=== PATIENT | female | born 1945 | race Caucasian/White ===

== ENCOUNTER 2016-09-16 09:31 | Outpatient (CLI) | payer MEDICARE ==
[2016-09-16 11:06] LABS: Hemoglobin A1c 5.8 % (4.0-6.0)
[2016-09-16 11:08] LABS: ALT (SGPT) 15 U/L (0-55); AST (SGOT) 18 U/L (5-34); Alkaline Phosphatase 99 U/L (40-150); Bilirubin, Direct 0.3 mg/dL (0.1-0.3); Bilirubin, Total 0.6 mg/dL (0.2-1.2); LDL Cholesterol, Calculated 65 mg/dL; Protein, Total 7.5 g/dL (5.8-8.1)
== END 2016-09-16 09:32 | disposition home or self-care (01) ==
LOC: BURLAB 09:31
PROVIDERS: ATTEND Family Medicine
DX: E78.5 Hyperlipidemia, unspecified (principal); R73.09 Other abnormal glucose
CPT/HCPCS: 36415; 80061; 80076; 83036

== ENCOUNTER 2016-11-07 14:19 | Outpatient (CLI) | payer MEDICARE ==
[2016-11-07 14:48] LABS: #Basophils 0.1 thou/uL (0.0-0.2); #Eosinphils 0.5 thou/uL (0.0-0.7); #Lymphocytes 2.7 thou/uL (1.20-3.40); #Monocytes 0.7 thou/uL (0.11-0.59); #Neutrophils 4.2 thou/uL (1.40-6.50); %Basophils 1.7 % (0.0-1.0); %Eosinophils 6.4 % (0.0-10.0); %Monocytes 8.3 % (0.0-10.0); Hematocrit 37.6 % (36.0-47.0); Mean Platelet Volume 5.8 fL (7.4-10.4); Red Blood Cell (RBC) Count 4.25 mill/uL (4.20-5.40); White Blood Cell (WBC) Count 8.2 thou/uL (4.8-10.8)
[2016-11-07 14:55] LABS: ALT (SGPT) 14 U/L (0-55); AST (SGOT) 18 U/L (5-34); Alkaline Phosphatase 100 U/L (40-150); Anion Gap 15 mmol/L (10-20); BUN (Urea Nitrogen) 15 mg/dL (9.8-20.1); Bilirubin, Total 0.5 mg/dL (0.2-1.2); Calc. Creatinine Clearance 0 mL/min (70-130); Calcium 9.3 mg/dL (7.8-10.44); Carbon Dioxide 28 mmol/L (23-31); Chloride 100 mmol/L (98-107); Estimated GFR-MDRD 50; Protein, Total 7.3 g/dL (5.8-8.1)
== END 2016-11-07 14:20 | disposition home or self-care (01) ==
LOC: BURLAB 14:19
PROVIDERS: ATTEND Family Medicine
DX: Z01.818 Encounter for other preprocedural examination (principal); M16.12 Unilateral primary osteoarthritis, left hip
CPT/HCPCS: 36415; 80053; 85025

== ENCOUNTER 2017-02-15 11:24 | Emergency (ER) | payer MEDICARE ==
[2017-02-15] MEDS ORDERED: Nitroglycerin 0.4 MG TAB (25 Tab Bottle) ONE (11:37)
[2017-02-15 11:44] LABS: #Basophils 0.1 thou/uL (0.0-0.2); #Eosinphils 0.6 thou/uL (0.0-0.7); #Lymphocytes 2.2 thou/uL (1.20-3.40); #Monocytes 0.6 thou/uL (0.11-0.59); #Neutrophils 4.7 thou/uL (1.40-6.50); %Basophils 1.1 % (0.0-1.0); %Eosinophils 7.8 % (0.0-10.0); %Lymphocytes 26.5 % (21.0-51.0); %Monocytes 7.2 % (0.0-10.0); %Neutrophils 57.4 % (42.0-75.0); Hemoglobin 13.5 g/dL (12.0-16.0); Mean Corpuscular HGB CONC 33.3 g/dL (32.0-36.0); Mean Corpuscular Volume 87.1 fl (81.0-99.0); Mean Platelet Volume 5.8 fL (7.4-10.4); Platelet Count 248 thou/uL (130-400); RBC Distribution Width 12.2 % (11.5-14.5); Red Blood Cell (RBC) Count 4.65 mill/uL (4.20-5.40); White Blood Cell (WBC) Count 8.2 thou/uL (4.8-10.8)
[2017-02-15 11:59] LABS: ALT (SGPT) 20 U/L (8-55); AST (SGOT) 22 U/L (5-34); Albumin 4.4 g/dL (3.4-4.8); Alkaline Phosphatase 115 U/L (40-150); Anion Gap 15 mmol/L (10-20); BUN (Urea Nitrogen) 10 mg/dL (9.8-20.1); Bilirubin, Total 0.5 mg/dL (0.2-1.2); Calc. Creatinine Clearance 0 mL/min (70-130); Calcium 9.1 mg/dL (7.8-10.44); Carbon Dioxide 29 mmol/L (23-31); Chloride 98 mmol/L (98-107); Estimated GFR-MDRD 70; Globulin 3.4 g/dL (2.4-3.5); Glucose 92 mg/dL (83-110); Potassium 3.3 mmol/L (3.5-5.1); Protein, Total 7.8 g/dL (6.0-8.3); Sodium 139 mmol/L (136-145)
[2017-02-15 12:00] LABS: CKMB 0.8 ng/mL (0-6.6); Troponin I Less than 0.010 ng/mL (< 0.028)
--- NOTE | 2017-02-15 12:11 | RAD ---
FRONTAL VIEW OF CHEST: Date: 02/15/17 COMPARISON: 05/10/15. INDICATION: Chest pain. FINDINGS: Mild patchy opacity of the left lung base is present. The cardiac silhouette is accentuated by techn ique. Lungs are mildly hyperinflated, stable appearing. No additional significant interval change. IMPRESSION: Mild patchy left basilar opacity may be on the basis of atelectasis. Correlate clinically to exclude evidence of developing pneumonia and, as necessary, dedicated imaging follow-up with 2 view chest m ay be performed to confirm resolution. POS: [facility]
== END 2017-02-15 12:38 | disposition short-term general hospital (02) ==
LOC: BURERS 11:24
DX: R07.2 Precordial pain (principal); J45.909 Unspecified asthma, uncomplicated; I10 Essential (primary) hypertension; F32.9 Major depressive disorder, single episode, unspecified; F41.9 Anxiety disorder, unspecified; Z79.899 Other long term (current) drug therapy
CPT/HCPCS: 71010; 80053; 82553; 83880; 84484; 85025; 93005

== ENCOUNTER 2017-03-14 12:16 | Outpatient (CLI) | payer MEDICARE ==
[2017-03-14 16:34] LABS: Bilirubin Negative (Negative); Blood, Urine Negative (Negative); Clarity Clear (Clear); Glucose, Urine (Dipstick) Negative (Negative); Leukocyte Negative (Negative); Nitrite Negative (Negative); Protein, Urine (Dipstick) Negative (Neg-Trace); Specific Gravity, Urine 1.015 (1.005-1.030); Urobilinogen 0.2 mg/dL (0.2-1.0)
[2017-03-14 17:11] LABS: Bacteria/HPF None Seen HPF (None Seen); RBC/HPF 0-3 HPF (0-3); Squamous Epithelial 0-3 HPF (0-3); WBC/HPF None Seen HPF (0-3)
== END 2017-03-14 12:17 | disposition home or self-care (01) ==
LOC: LABLEX 12:16
PROVIDERS: ATTEND Family Medicine
DX: N30.00 Acute cystitis without hematuria (principal)
CPT/HCPCS: 81001; 87086

== ENCOUNTER 2017-03-27 09:08 | Outpatient (CLI) | payer MEDICARE ==
--- NOTE | 2017-03-27 19:38 | RAD ---
RIGHT HIP TWO VIEWS 03/27/17 No fracture was demonstrated. Arthritic changes are seen in the hip joint consistent with osteophyte s and joint space narrowing. It is moderate in degree. The adjacent pubic ring appears intact. The t rochanters and femoral neck appear normal for age. IMPRESSION: Moderate degenerative changes but no acute findings. POS: HOME
== END 2017-03-27 09:09 | disposition home or self-care (01) ==
LOC: BURRAD 09:08
PROVIDERS: ATTEND Family Medicine
DX: M25.551 Pain in right hip (principal); M16.11 Unilateral primary osteoarthritis, right hip; W19.XXXA Unspecified fall, initial encounter

== ENCOUNTER 2017-05-12 22:05 | Emergency (ER) | payer MEDICARE ==
[2017-05-12 22:40] LABS: Bilirubin Negative (Negative); Blood, Urine Negative (Negative); Clarity Clear (Clear); Glucose, Urine (Dipstick) Negative (Negative); Leukocyte Negative (Negative); Nitrite Negative (Negative); Protein, Urine (Dipstick) Negative (Neg-Trace); Urobilinogen 0.2 mg/dL (0.2-1.0)
[2017-05-12] MEDS ORDERED: Azithromycin 250 MG TAB ONE (22:49)
[2017-05-12] MEDS ORDERED: traMADol HCl 50 MG TAB ONE (22:49)
[2017-05-12] MEDS ORDERED: Benzonatate 100 MG CAP ONE (22:50)
== END 2017-05-12 22:51 | disposition home or self-care (01) ==
LOC: BURERS 22:05
DX: J01.90 Acute sinusitis, unspecified (principal); F32.9 Major depressive disorder, single episode, unspecified; F41.9 Anxiety disorder, unspecified; J45.909 Unspecified asthma, uncomplicated; I10 Essential (primary) hypertension; G62.89 Other specified polyneuropathies; Z86.73 Personal history of transient ischemic attack (TIA), and cerebral infarction without residual deficits
CPT/HCPCS: 81003; 99283

== ENCOUNTER 2017-05-17 16:06 | Outpatient (CLI) | payer MEDICARE ==
--- NOTE | 2017-05-17 23:19 | RAD ---
CHEST TWO VIEWS 05/17/17 The heart is normal in size. The lungs are clear with no current signs of pneumonia. There are no ef fusions. The lungs are mildly hyperexpanded. The study seems no different than a 02/15/17 portable fi lm done previously. IMPRESSION: Mildly hyperexpanded lungs but no acute findings otherwise. POS: HOME
== END 2017-05-17 16:07 | disposition home or self-care (01) ==
LOC: BURRAD 16:06
PROVIDERS: ATTEND Nurse Practitioner
DX: J45.31 Mild persistent asthma with (acute) exacerbation (principal); J98.4 Other disorders of lung
CPT/HCPCS: 71020

== ENCOUNTER 2017-12-04 14:37 | Outpatient (CLI) | payer MEDICARE ==
--- NOTE | 2017-12-04 20:37 | RAD ---
CERVICAL SPINE: 12/04/17 AP, lateral and open mouth views are provided. Comparison is made with the prior study of 10/24/11. The patient has had a prior anterior cervical fusion at the C4-C7 levels. Synthetic discs are placed in the intervening disc spaces. No fracture or dislocation was seen. Vertebral alignment is as expected. There are no unusual postope rative changes. The C1 to disc distance is normal and the soft tissues are normal in thickness. IMPRESSION: No significant finding. POS: HOME
== END 2017-12-04 14:38 | disposition home or self-care (01) ==
LOC: BURRAD 14:37
PROVIDERS: ATTEND Family Medicine
DX: M54.2 Cervicalgia (principal)
CPT/HCPCS: 72040

== ENCOUNTER 2018-10-25 13:47 | Outpatient (CLI) | payer MEDICARE ==
--- NOTE | 2018-10-25 15:49 | RAD ---
CHEST 2 VIEWS: Date: 10/25/18 Comparison is made with the 08/16/18 study. FINDINGS: The heart is normal in size. There is no vascular congestion or edema. No pleural effusion is present . While there is no major lobar infiltrate, there is a little increased haziness in the right lower l obe. It seems enough different from the prior study that I cannot exclude a very early infiltrate her e as a possibility. The lungs are otherwise clear. The mediastinum is unremarkable. The trachea is mi dline. IMPRESSION: Minimal right basilar haziness. Correlate with clinical symptoms. CODE T. POS: HOME
== END 2018-10-25 13:48 | disposition home or self-care (01) ==
LOC: BURRAD 13:47
PROVIDERS: ATTEND Nurse Practitioner
DX: J44.1 Chronic obstructive pulmonary disease with (acute) exacerbation (principal); J98.4 Other disorders of lung
CPT/HCPCS: 71046

== ENCOUNTER 2018-11-21 12:44 | Emergency (ER) | payer MEDICARE ==
[2018-11-21 13:22] LABS: #Basophils 0.1 thou/uL (0.0-0.2); #Eosinphils 0.2 thou/uL (0.0-0.7); #Lymphocytes 0.6 thou/uL (1.20-3.40); #Monocytes 0.4 thou/uL (0.11-0.59); #Neutrophils 9.7 thou/uL (1.40-6.50); %Basophils 0.5 % (0.0-1.0); %Eosinophils 1.7 % (0.0-10.0); %Lymphocytes 5.6 % (21.0-51.0); %Monocytes 3.3 % (0.0-10.0); Hemoglobin 15.1 g/dL (12.0-16.0); Mean Corpuscular HGB CONC 31.8 g/dL (32.0-36.0); Mean Corpuscular Hemoglobin 28.1 pg (27.0-31.0); Mean Corpuscular Volume 88.5 fL (78.0-98.0); Mean Platelet Volume 6.5 fL (7.4-10.4); Platelet Count 197 thou/uL (130-400); RBC Distribution Width 13.4 % (11.5-14.5); Red Blood Cell (RBC) Count 5.38 mill/uL (4.20-5.40); White Blood Cell (WBC) Count 10.9 thou/uL (4.8-10.8)
[2018-11-21] MEDS ORDERED: Ondansetron PF 4 MG/2 ML Vial ONE (13:35)
[2018-11-21 13:37] LABS: ALT (SGPT) 10 U/L (8-55); AST (SGOT) 20 U/L (5-34); Albumin 4.7 g/dL (3.4-4.8); Alkaline Phosphatase 108 U/L (40-150); Anion Gap 15 mmol/L (10-20); BUN (Urea Nitrogen) 7 mg/dL (9.8-20.1); Bilirubin, Total 1.1 mg/dL (0.2-1.2); Calc. Creatinine Clearance 0 mL/min (70-130); Calcium 9.8 mg/dL (7.8-10.44); Carbon Dioxide 29 mmol/L (23-31); Chloride 98 mmol/L (98-107); Estimated GFR-MDRD 63; Glucose 127 mg/dL (83-110); Lipase 6 U/L (8-78); Potassium 3.7 mmol/L (3.5-5.1); Protein, Total 8.7 g/dL (6.0-8.3); Sodium 138 mmol/L (136-145)
--- NOTE | 2018-11-21 13:45 | CT ---
FCT brain noncontrast: 11/13/2018 1:29 PM HISTORY: 73-year-old female with altered mental status. Confusion. FINDINGS: Severe partial opacification of left maxillary sinus. Tzqs-bi-vdxffatw mucosal thickening throughout right maxillary sinus, bilateral ethmoid air cells, and frontal sinuses. Calvarium is grossly intact. No intracranial mass effect, midline shift, obstructive hydrocephalus, extra-axial fluid collection, or acute hemorrhage. Probable tiny old lacunar infarction at right globus pallidus with possible inv olvement of adjacent caudate nucleus. IMPRESSION: 1. No acute intracranial findings. 2. 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 3. Severe partial opacification of left maxillary sinus.
[2018-11-21 14:00] LABS: CKMB 0.7 ng/mL (0-6.6)
[2018-11-21 14:00] LABS: Bilirubin Negative (Negative); Blood, Urine Negative (Negative); Clarity Clear (Clear); Glucose, Urine (Dipstick) Negative (Negative); Leukocyte Negative (Negative); Nitrite Negative (Negative); Protein, Urine (Dipstick) Trace mg/dL (Neg-Trace); Specific Gravity, Urine 1.015 (1.005-1.030); Urobilinogen 0.2 mg/dL (0.2-1.0); pH, Urine 7.5 (5.0-9.0)
[2018-11-21] MEDS ORDERED: Piperacillin/Tazobactam 4.5 GM VIAL ONE (14:02)
[2018-11-21] MEDS ORDERED: Sodium Chloride 0.9% 100 ML ONE (14:02)
[2018-11-21] MEDS ORDERED: Acetaminophen 650 MG Suppository ONE (14:18)
[2018-11-21 16:04] LABS: Amphetamine Not Detected (NotDetected); Barbiturates Screen Not Detected (NotDetected); Benzodiazepine Screen Not Detected (NotDetected); Cocaine Metabolite Screen Not Detected (NotDetected); Medtox Control Line Valid? VALID (VALID); Methadone Not Detected (NotDetected); Methamphetamine Not Detected (NotDetected); Opiate Screen Not Detected (NotDetected); Oxycodone Screen Not Detected (NotDetected); Phencyclidine (PCP) Not Detected (NotDetected); THC/Cannabinoid Screen Not Detected (NotDetected); Tricyclic Screen Not Detected (NotDetected)
[2018-11-21 16:10] LABS: Acetaminophen Less than 6.0 mcg/mL (10.0-30.0); Alcohol Less than 10 mg/dL (Less than 10); Salicylate Less than 8.0 mg/dL (15.0-30.0)
--- NOTE | 2018-11-21 22:18 | RAD ---
PORTABLE CHEST 11/21/18 An AP portable film at 1323 is compared with a 10/30/18 study. The heart is normal in size. There is no congestion, edema or pleural effusion. There is no lobar pul monary consolidation. There is some haziness in the right base medially but looking back at some prio r films back to October 25, 2018, I am not sure this is really that much different than before. IMPRESSION: Slight right basilar haziness that is more likely chronic than acute. POS: HOME
== END 2018-11-21 16:12 | disposition short-term general hospital (02) ==
LOC: BURERS 12:44
DX: J18.1 Lobar pneumonia, unspecified organism (principal); R94.31 Abnormal electrocardiogram [ECG] [EKG]; J01.90 Acute sinusitis, unspecified; R79.89 Other specified abnormal findings of blood chemistry; I10 Essential (primary) hypertension; Z86.73 Personal history of transient ischemic attack (TIA), and cerebral infarction without residual deficits; K21.9 Gastro-esophageal reflux disease without esophagitis; F41.9 Anxiety disorder, unspecified; F32.9 Major depressive disorder, single episode, unspecified; Z79.899 Other long term (current) drug therapy; Z79.82 Long term (current) use of aspirin; Z79.51 Long term (current) use of inhaled steroids
CPT/HCPCS: 51701; 70450; 71045; 80053; 80306; 80307; 81003; 82271; 82553; 83605; 83690; 84484; 85025; 87040; 87804; 93005; 94760; 96365; 96367; 96375; A4353; J1956; J2405; J2543; J7050

== ENCOUNTER 2019-10-30 15:21 | Emergency (ER) | payer MEDICARE ==
--- NOTE | 2019-10-30 20:09 | CT ---
CT OF THE BRAIN WITHOUT CONTRAST: 10/30/19 Comparison is made with the prior exam dated 11/21/18. No acute intracranial findings were encountered. There is no sign of parenchymal hemorrhage or extra- axial hematoma. There was no evidence of acute stroke, mass, or edema. The crandall-white distinction is good. There is no ventricular shift. The calvarium appears intact with no sign of fracture. There is chronic mucosal thickening in the lef t maxillary sinus and some of the ethmoid sinuses bilaterally. This was present to some degree on the prior exam. The mastoid air cells are clear. IMPRESSION: 1. No acute intracranial findings. 2. Chronic sinusitis, particularly in the left maxillary sinus. Initial findings called to [facility] in ER at 1625 on 10/30/19. POS: HOME
== END 2019-10-30 16:45 | disposition home or self-care (01) ==
LOC: BURERS 15:21
DX: S00.03XA Contusion of scalp, initial encounter (principal); S29.012A Strain of muscle and tendon of back wall of thorax, initial encounter; S16.1XXA Strain of muscle, fascia and tendon at neck level, initial encounter; I10 Essential (primary) hypertension; E78.5 Hyperlipidemia, unspecified; G62.9 Polyneuropathy, unspecified; F41.9 Anxiety disorder, unspecified; F32.9 Major depressive disorder, single episode, unspecified; J42 Unspecified chronic bronchitis; Z87.891 Personal history of nicotine dependence; Z86.73 Personal history of transient ischemic attack (TIA), and cerebral infarction without residual deficits; Z79.82 Long term (current) use of aspirin; Z79.899 Other long term (current) drug therapy; W18.30XA Fall on same level, unspecified, initial encounter
CPT/HCPCS: 70450

== ENCOUNTER 2020-04-05 18:26 | Inpatient (IN) | payer MEDICARE, OTHER ==
[2020-04-05 19:05] LABS: #Basophils 0.1 thou/uL (0.0-0.2); #Eosinphils 0.2 thou/uL (0.0-0.7); #Lymphocytes 1.7 thou/uL (1.20-3.40); #Monocytes 0.9 thou/uL (0.11-0.59); #Neutrophils 7.6 thou/uL (1.40-6.50); %Basophils 0.7 % (0.0-1.0); %Eosinophils 2.3 % (0.0-10.0); %Lymphocytes 16.1 % (21.0-51.0); %Monocytes 8.4 % (0.0-10.0); %Neutrophils 72.5 % (42.0-75.0); Hemoglobin 11.3 g/dL (12.0-16.0); Mean Corpuscular HGB CONC 30.7 g/dL (32.0-36.0); Mean Corpuscular Hemoglobin 28.8 pg (27.0-31.0); Mean Corpuscular Volume 93.8 fL (78.0-98.0); Mean Platelet Volume 7.1 fL (7.4-10.4); Platelet Count 187 thou/uL (130-400); RBC Distribution Width 13.2 % (11.5-14.5); Red Blood Cell (RBC) Count 3.92 mill/uL (4.20-5.40); White Blood Cell (WBC) Count 10.5 thou/uL (4.8-10.8)
[2020-04-05 19:17] LABS: ALT (SGPT) 13 U/L (8-55); AST (SGOT) 17 U/L (5-34); Albumin 3.8 g/dL (3.4-4.8); Alkaline Phosphatase 88 U/L (40-110); Anion Gap 13 mmol/L (10-20); BUN (Urea Nitrogen) 9 mg/dL (9.8-20.1); Bilirubin, Total 1.1 mg/dL (0.2-1.2); Calc. Creatinine Clearance 0 mL/min (70-130); Calcium 8.2 mg/dL (7.8-10.44); Carbon Dioxide 24 mmol/L (23-31); Chloride 103 mmol/L (98-107); Estimated GFR-MDRD 68; Globulin 3.1 g/dL (2.4-3.5); Glucose 140 mg/dL (83-110); Potassium 3.5 mmol/L (3.5-5.1); Protein, Total 6.9 g/dL (6.0-8.3); Sodium 136 mmol/L (136-145)
[2020-04-05] MEDS ORDERED: Cefepime 1 GM VIAL ONE (19:25)
[2020-04-05] MEDS ORDERED: Adacel (T-DAP) 0.5 ML SYRINGE ONE (19:28)
[2020-04-05 19:29] LABS: D-Dimer Test 2.38 *mcg/mL (0.27-0.43); INR-International Normal Ratio 1.2; PTT 39.5 sec (22.9-36.1); Prothrombin Time 15.5 sec (12.0-14.7)
--- NOTE | 2020-04-05 21:00 | RAD ---
RIGHT FOOT THREE VIEWS: Date: 04-05-2020 FINDINGS: No fracture or opaque foreign body was seen. Swelling is seen in the forefoot, especially dorsally. T he bones themselves appear intact. No areas of bony destruction were detected. The joints were unrema rkable for age. A tiny calcaneal spur was noted. IMPRESSION: No acute bony finding. POS: HOME
[2020-04-05 21:02] VITALS: BMI 22.7
[2020-04-05] MEDS ORDERED: Acetaminophen 325 MG TAB PO PRN (21:28)
[2020-04-06] MEDS ORDERED: Ondansetron ODT 4 MG TAB PO PRN (07:55)
[2020-04-06] MEDS ORDERED: Vancomycin HCl 1 GM in Sodium Chloride 0.9% 250 ML 250 ML IVPB SCH (08:00)
[2020-04-06] MEDS: Cefepime 1 GM in Sodium Chloride 0.9% 100 ML IVPB SCH ×2 (09:13→20:49)
[2020-04-06] MEDS: Saccharomyces boulardii 250 MG CAP PO SCH (09:23)
[2020-04-06] MEDS: Gabapentin 300 MG CAP PO SCH ×2 (09:23→20:50)
[2020-04-06] MEDS: Aspirin 81 mg Enteric Coated Tablet PO SCH (09:24)
[2020-04-06] MEDS: DULoxetine 30 MG CAP PO SCH (09:24)
[2020-04-06] MEDS: Oxybutynin 5 MG TAB PO SCH ×3 (09:27→20:51)
[2020-04-06] MEDS: Amlodipine 5 MG TAB PO SCH (09:28)
[2020-04-06] MEDS: Enoxaparin Sodium 40 MG/0.4 ML SYRINGE SC SCH (09:32)
[2020-04-06] MEDS: Vancomycin HCl 1 GM in Sodium Chloride 0.9% 250 ML 250 ML IVPB SCH ×2 (10:35→23:09)
--- NOTE | 2020-04-06 11:32 | HP ---
CHIEF COMPLAINT: Cellulitis of right lower extremity. HISTORY OF PRESENT ILLNESS: A 74-year-old female presented to the [facility] Emergency Department yesterday evening with complaints of swelling, erythema and localized discomfort to the dorsum of her right foot which has worsened over a two day time period. She reported to have an accompanying low-grade fever as well. The patient states that she was outdoors feeding her cats and felt a sting to the dorsum of her right foot and upon going back indoors noticed two pinpoint areas of bleeding to the dorsum of the right foot. She is unsure of the cause of this localized injury. As stated, the appearance of her foot gradually worsened since that time. She has had no treatment since her evaluation in the [facility] Emergency Department. Workup in the emergency department was stable overall as far as her lab work and imaging. However, it was noted that the erythema to the dorsum of the foot had spread to the area superior to the ankle joint. Blood cultures were obtained and then she was started on vancomycin and cefepime empirically. She was provided Tdap immunization as well. The patient is subsequently being admitted to the floor for further IV antibiotic therapy to treat her right lower extremity cellulitis. In discussion with the ED physician, Dr. Mcnally, does not feel that this is from a snake bite as the two puncture markings are approximately 5 to 6 cm from each other and do not line up appropriately. As of this morning, upon seeing the patient, she reports to be doing well overall. She has had some decrease in level of erythema, which is now more focal to the dorsum of the right foot. She reports her pain to be stable and intake and output to be at baseline. She has good insight into her reason for admission. PAST MEDICAL HISTORY: Includes hypertension, anxiety with depression, dyslipidemia, peripheral polyneuropathy, mild memory impairment, chronic cervicalgia and polyarthralgia, bilateral hearing loss, gastroesophageal reflux disease, and COPD. SURGICAL HISTORY: Uterus suspension, appendectomy, conization of cervix, D and C, tonsillectomy and adenoidectomy, partial hysterectomy followed by a complete hysterectomy, bladder suspensions, knee surgery, breast biopsy, heart catheterization, varicose vein removed from the right leg, hernia repair to the abdomen, cervical spinal surgery, ankle surgery, cataract repair. SOCIAL HISTORY: She is a former smoker and denies illicit drug use or regular alcohol use. FAMILY HISTORY: Noncontributory. ALLERGIES: CHLORPROMAZINE, CODEINE, IODINE, AND OXYCODONE. CURRENT MEDICATIONS: 1. Trazodone 75 mg at bedtime. 2. . 3. Duragesic patch 25 mcg q.3 days. 4. Pantoprazole 40 mg b.i.d. 5. Oxybutynin 5 mg b.i.d. 6. Isosorbide mononitrate extended release 30 mg daily. 7. Gabapentin 600 mg b.i.d. 8. Advair 250/50 Diskus 1 puff inhaled b.i.d. 9. Duloxetine 30 mg daily. 10. Atorvastatin 40 mg at bedtime. 11. Aspirin 81 mg daily. 12. Amlodipine 5 mg daily. REVIEW OF SYSTEMS: GENERAL: She reports low-grade fever. EARS, NOSE, AND THROAT: Denies sore throat, nasal drainage or congestion. CARDIOVASCULAR: Denies chest pain or palpitations. RESPIRATORY: Denies shortness of breath or cough. GASTROINTESTINAL: Denies abdominal pain, diarrhea, or constipation. She does report some nausea without emesis. GENITOURINARY: Denies dysuria. MUSCULOSKELETAL: Complains of chronic joint pain. DERM: Complains of erythema to the distal right lower extremity with two scabbed puncture sites. NEURO: Denies headache. LABORATORY DATA: White blood cell count is 10.5, hemoglobin is 11.3, hematocrit 36.8, and platelets are 187. Sodium 136, potassium 3.5, BUN is 9, creatinine 0.82 with GFR 68. Lactic acid 0.8. AST 17, ALT 13. Troponin 0.022. BNP 66.8. INR was 1.2. D-dimer 2.38. IMAGIN04/05/20, right foot x-ray shows no acute bony finding. PHYSICAL EXAMINATION: VITAL SIGNS: Temperature is 98.6, pulse is 63, respiratory rate is 18, oxygen is 94% on room air, and blood pressure is 128/63. GENERAL: She is alert and oriented, in no acute distress. She is hard of hearing. HEENT: Eyes, conjunctivae are clear. Sclerae are clear. Pupils are equal, round, and reactive to light. Extraocular muscles are intact bilaterally. Ear, nose, and throat, moist mucous membranes. Upper denture with poor lower dentition. NECK/THYROID: Supple. She has a well-healed scar to the anterior neck. No lymphadenopathy. CARDIOVASCULAR: Regular rate and rhythm. Normal S1, S2. She has a 2/6 murmur. RESPIRATORY: Mildly prolonged expiratory phase with clear to auscultation bilaterally. No wheezes or respiratory distress. GASTROINTESTINAL: Soft, nontender to palpation. No masses. EXTREMITIES: She has erythema covering the dorsum of her right foot with superficial warmth and trace edema. She has two scabbed puncture wounds to the dorsum of the mid right foot approximately 5 to 6 cm from each other. She is neurovascularly intact distally. SKIN: There are no rashes. NEUROLOGIC: Nonfocal. Cranial nerves 2 through 12 are grossly intact. Peripheral pulses are 2+ to all extremities. ASSESSMENT AND PLAN: 1. Cellulitis of the right lower extremity. The patient will be continued on IV vancomycin and cefepime with pharmacy to dose vancomycin per protocol. We will repeat her labs tomorrow morning and follow up her blood cultures. It is not felt that she has a DVT involving the right lower extremity, although her D-dimer is elevated. Her Wells score for DVT was a score of -1, further justifying lack of pursuance of venous Doppler. 2. Hypertension. The patient is hemodynamically stable. We will resume her usual blood pressure medications. 3. Dyslipidemia. She will resume on her statin. 4. Anxiety with depression. We will resume the patient's SNRI. 5. Chronic obstructive pulmonary disease. She is stable on room air with clear lung bailon. 6. Prophylaxis. We will resume the patient's typical proton pump inhibitor and have Lovenox for DVT prophylaxis. We will also add Florastor to serve as a probiotic with her being on antibiotic therapy. Job ID: [id number] [facility]
[2020-04-06] MEDS ORDERED: Albuterol 200 PUFF (6.7GM INHALER) INH PRN (16:58)
[2020-04-06] MEDS ORDERED: Mometasone/Formoterol 200/5 60 PUFF INH SCH (18:00)
[2020-04-06] MEDS ORDERED: traZODone HCl 50 MG TAB PO SCH (21:00)
[2020-04-06] MEDS ORDERED: Atorvastatin Calcium 40 MG TAB PO SCH (21:00)
[2020-04-06 22:19] LABS: Vancomycin, Trough 2.7 ug/mL
[2020-04-07 05:19] LABS: ALT (SGPT) 11 U/L (8-55); AST (SGOT) 13 U/L (5-34); Albumin 3.3 g/dL (3.4-4.8); Alkaline Phosphatase 91 U/L (40-110); Anion Gap 12 mmol/L (10-20); BUN (Urea Nitrogen) 9 mg/dL (9.8-20.1); Bilirubin, Total 0.6 mg/dL (0.2-1.2); Calc. Creatinine Clearance 59 mL/min (70-130); Calcium 7.9 mg/dL (7.8-10.44); Carbon Dioxide 23 mmol/L (23-31); Chloride 106 mmol/L (98-107); Estimated GFR-MDRD 65; Globulin 2.8 g/dL (2.4-3.5); Glucose 113 mg/dL (83-110); Protein, Total 6.1 g/dL (6.0-8.3); Sodium 137 mmol/L (136-145)
[2020-04-07 05:37] LABS: Band 4 % (5-11); Burr Cells SLIGHT = 2-5 cells (100X) (0-1/hpf); Eosinophils 10 % (0-10); Hemoglobin 10.6 g/dL (12.0-16.0); Lymphocytes 28 % (21-51); MDiff Complete? YES; Mean Corpuscular Hemoglobin 28.8 pg (27.0-31.0); Mean Corpuscular Volume 96.1 fL (78.0-98.0); Mean Platelet Volume 6.6 fL (7.4-10.4); Monocytes 8 % (0-10); Neutrophil 47 % (42-75); Ovalocytes SLIGHT = 2-5 cells (100X) (0-1/hpf); Platelet Count 186 thou/uL (130-400); Platelet Morphology Comment Appears Adequate; RBC Distribution Width 13.2 % (11.5-14.5); Reactive Lymphocytes 2 % (0-10); Red Blood Cell (RBC) Count 3.66 mill/uL (4.20-5.40); Toxic Granulation SLIGHT; White Blood Cell (WBC) Count 6.5 thou/uL (4.8-10.8)
[2020-04-07] MEDS: Cefepime 1 GM in Sodium Chloride 0.9% 100 ML IVPB SCH ×2 (08:07→20:35)
[2020-04-07] MEDS: Enoxaparin Sodium 40 MG/0.4 ML SYRINGE SC SCH (08:15)
[2020-04-07] MEDS: Amlodipine 5 MG TAB PO SCH (08:16)
[2020-04-07] MEDS: Gabapentin 300 MG CAP PO SCH (08:16)
[2020-04-07] MEDS: Aspirin 81 mg Enteric Coated Tablet PO SCH (08:16)
[2020-04-07] MEDS: Oxybutynin 5 MG TAB PO SCH (08:16)
[2020-04-07] MEDS: Saccharomyces boulardii 250 MG CAP PO SCH (08:16)
[2020-04-07] MEDS: DULoxetine 30 MG CAP PO SCH (08:17)
[2020-04-07] MEDS ORDERED: Loratadine 10 MG TAB PO SCH (09:00)
[2020-04-07] MEDS ORDERED: UMECLIDINIUM INH SCH (09:00)
[2020-04-07] MEDS ORDERED: TRELEGY ELLIPTA INH SCH (09:00)
[2020-04-07] MEDS ORDERED: VILANTEROL INH SCH (09:00)
[2020-04-07] MEDS ORDERED: Vancomycin HCl 750 MG in Sodium Chloride 0.9% 250 ML 250 ML IVPB SCH (10:00)
[2020-04-07] MEDS ORDERED: Vancomycin HCl 500 MG in Sodium Chloride 0.9% 100 ML IVPB SCH (11:00)
[2020-04-07 16:25] LABS: SARS-CoV-2 MS2 Positive; SARS-CoV-2 N Gene Negative; SARS-CoV-2 S Gene Negative; SARS-CoV-2 by NAA Not Detected (NotDetected); SARS-CoV-2 orf1ab Negative
[2020-04-07 17:21] VITALS: BP 136/63; TEMP 98.4
[2020-04-07] MEDS ORDERED: Lorazepam 0.5 MG TAB PO SCH (18:15)
[2020-04-07] MEDS ORDERED: Lorazepam 2 MG/ML VIAL ONE (19:34)
[2020-04-07] MEDS ORDERED: Lorazepam 2 MG/ML VIAL SLOW IVP SCH (20:00)
--- NOTE | 2020-04-08 09:22 | DIS ---
DATE OF ADMISSION: 04/05/2020 DATE OF DISCHARGE: 04/07/2020 ADMISSION DIAGNOSIS: Cellulitis of the right lower extremity. SECONDARY DIAGNOSES: Hypertension, dyslipidemia, chronic obstructive pulmonary disease, anxiety with depression, and mild memory impairment. PROCEDURES: On 04/05/2020, x-ray of the right foot showed no acute bony finding. HOSPITAL COURSE: A 74-year-old female presented to the [facility] Emergency Department with a 2-day history of worsening erythema, swelling, and pain to the distal right lower extremity. This developed after accruing 2 small puncture wounds to the dorsum of the right foot of unknown etiology; she developed localized erythema from these puncture sites, which gradually spread up to the area above her right ankle. She reported having low-grade fever prior to arrival to the emergency department. Lab work and blood cultures were obtained in the emergency department and she was started empirically on IV vancomycin and cefepime and admitted to the floor. The patient's erythema to the distal right lower extremity did improve during her stay. Her blood cultures have returned back with no growth to date at 48 hours. For unknown reasons, she began being combative with nursing staff and demanded to leave last night. She had discussion with the emergency department physician as well and refused any further medication treatment and ultimately did decide to leave [place]. DISPOSITION: The patient will discharge to her home setting and may follow up with myself next week in the clinic. DISCHARGE MEDICATIONS: She will resume her usual medications and I have sent in doxycycline 100 mg p.o. b.i.d. x7 days to complete treatment for her right lower extremity cellulitis.. Job ID: [id number] MTDD
== END 2020-04-07 21:00 | disposition home or self-care (01) | DRG 603 ==
LOC: BURERS 18:26 → BURMED 19:58
PROVIDERS: ADMIT Family Medicine; ATTEND Family Medicine
DX: L03.115 Cellulitis of right lower limb (principal); I10 Essential (primary) hypertension; F41.9 Anxiety disorder, unspecified; F32.9 Major depressive disorder, single episode, unspecified; Z20.828 Contact with and (suspected) exposure to other viral communicable diseases; E78.5 Hyperlipidemia, unspecified; G62.89 Other specified polyneuropathies; G31.84 Mild cognitive impairment of uncertain or unknown etiology; H91.93 Unspecified hearing loss, bilateral; K21.9 Gastro-esophageal reflux disease without esophagitis; J44.9 Chronic obstructive pulmonary disease, unspecified; Z90.49 Acquired absence of other specified parts of digestive tract; Z90.710 Acquired absence of both cervix and uterus; Z87.891 Personal history of nicotine dependence; Z88.6 Allergy status to analgesic agent; Z88.8 Allergy status to other drugs, medicaments and biological substances; Z88.1 Allergy status to other antibiotic agents
CPT/HCPCS: 36415; 80053; 80202; 83605; 83880; 84484; 85025; 85379; 85610; 85730; 87040; 87635; 90471; 90715; 94760; 96365; 96375; J0692; J1650; J2060; J3370; J3490; J7050; Q0162; U0003

== ENCOUNTER 2020-10-30 09:35 | Inpatient (IN) | payer MEDICARE ==
[2020-10-30] MEDS ORDERED: Acetaminophen 500 MG TAB ONE (10:53)
[2020-10-30] MEDS ORDERED: Dexamethasone 4 mg/ml Vial ONE (10:53)
[2020-10-30 11:06] LABS: #Basophils 0.1 thou/uL (0.0-0.2); #Eosinphils 0.2 thou/uL (0.0-0.7); #Lymphocytes 0.5 thou/uL (1.20-3.40); #Monocytes 0.5 thou/uL (0.11-0.59); #Neutrophils 2.2 thou/uL (1.40-6.50); %Basophils 1.7 % (0.0-1.0); %Eosinophils 6.2 % (0.0-10.0); %Lymphocytes 14.3 % (21.0-51.0); %Monocytes 14.6 % (0.0-10.0); %Neutrophils 63.2 % (42.0-75.0); Hemoglobin 13.2 g/dL (12.0-16.0); Mean Corpuscular HGB CONC 31.7 g/dL (32.0-36.0); Mean Corpuscular Hemoglobin 28.7 pg (27.0-31.0); Mean Corpuscular Volume 90.4 fL (78.0-98.0); Mean Platelet Volume 6.6 fL (7.4-10.4); Platelet Count 201 thou/uL (130-400); RBC Distribution Width 12.9 % (11.5-14.5); Red Blood Cell (RBC) Count 4.62 mill/uL (4.20-5.40); White Blood Cell (WBC) Count 3.5 thou/uL (4.8-10.8)
[2020-10-30 12:02] LABS: Bilirubin Negative (Negative); Blood, Urine Trace (Negative); Clarity Clear (Clear); Glucose, Urine (Dipstick) Negative (Negative); Ketone, Urine Negative (Negative); Leukocyte Large (Negative); Nitrite Positive (Negative); Protein, Urine (Dipstick) Negative (Neg-Trace); Urobilinogen 0.2 mg/dL (Less than 2)
[2020-10-30 12:04] LABS: ALT (SGPT) 218 U/L (8-55); AST (SGOT) 19 U/L (5-34); Albumin 4.2 g/dL (3.4-4.8); Alkaline Phosphatase 102 U/L (40-110); Anion Gap 16 mmol/L (10-20); BUN (Urea Nitrogen) 8 mg/dL (9.8-20.1); Bilirubin, Total 0.5 mg/dL (0.2-1.2); Calc. Creatinine Clearance 0 mL/min (70-130); Calcium 8.8 mg/dL (7.8-10.44); Carbon Dioxide 25 mmol/L (23-31); Chloride 100 mmol/L (98-107); Globulin 3.4 g/dL (2.4-3.5); Glucose 99 mg/dL (83-110); Protein, Total 7.6 g/dL (5.8-8.1); Sodium 137 mmol/L (136-145)
[2020-10-30] MEDS ORDERED: cefTRIAXone\\ROCEPHIN 2 GM VIAL ONE (12:19)
[2020-10-30] MEDS ORDERED: Sodium Chloride 0.9% 100 ML ONE (12:19)
[2020-10-30] MEDS ORDERED: Acetaminophen 325 MG TAB PO PRN (12:30)
[2020-10-30] MEDS ORDERED: Ondansetron PF 4 MG/2 ML Vial IVP PRN (12:30)
[2020-10-30] MEDS ORDERED: Ondansetron ODT 4 MG TAB SL PRN (12:30)
[2020-10-30 12:42] LABS: RBC/HPF 0-3 HPF (0-3)
[2020-10-30 12:43] LABS: Bacteria/HPF 1+ HPF (None Seen); Squamous Epithelial 0-3 HPF (0-3); WBC/HPF Greater than 50 HPF (0-3)
[2020-10-30 13:15] LABS: SARS-CoV-2 NAA Rapid Test DETECTED (NotDetected)
[2020-10-30] MEDS ORDERED: Albuterol Sulfate 2.5 mg/3 ml Neb NEB PRN (17:23)
[2020-10-30] MEDS ORDERED: cefTRIAXone\\ROCEPHIN 1 GM in Sodium Chloride 0.9% 100 ML IVPB SCH (17:30)
[2020-10-30] MEDS: Dextrose 5 %-0.45 % NaCl 1,000 ML IV SCH (17:45)
[2020-10-30 18:29] VITALS: BMI 23.1
[2020-10-30] MEDS ORDERED: Albuterol 200 PUFF (6.7GM INHALER) INH PRN ×2 (18:47→20:52)
[2020-10-30] MEDS: Albuterol 200 PUFF (6.7GM INHALER) INH SCH (19:35)
[2020-10-30] MEDS ORDERED: Loperamide HCl 2 MG CAP PO PRN ×2 (20:42)
[2020-10-30] MEDS ORDERED: Senokot S 8.6-50 MG TAB PO PRN (20:42)
[2020-10-30] MEDS ORDERED: Nitroglycerin 0.4 MG TAB (25 Tab Bottle) SL SCH (20:45)
[2020-10-30] MEDS: Gabapentin 300 MG CAP PO SCH (21:24)
[2020-10-30] MEDS: traZODone HCl 50 MG TAB PO SCH (21:25)
[2020-10-30] MEDS: Atorvastatin Calcium 40 MG TAB PO SCH (21:25)
[2020-10-30] MEDS: Sodium Chloride 0.9% 1,000 ML IV SCH (22:34)
[2020-10-30] MEDS: Guaifenesin DM 100-10/5 ML UDCUP PO PRN (23:07)
[2020-10-31] MEDS: Albuterol 200 PUFF (6.7GM INHALER) INH SCH ×4 (00:10→18:22)
[2020-10-31] MEDS: Dextrose 5 %-0.45 % NaCl 1,000 ML IV SCH ×2 (04:30→13:00)
[2020-10-31 07:41] LABS: Hemoglobin 11.8 g/dL (12.0-16.0); Mean Corpuscular HGB CONC 32.6 g/dL (32.0-36.0); Mean Corpuscular Hemoglobin 28.7 pg (27.0-31.0); Mean Platelet Volume 6.7 fL (7.4-10.4); Platelet Count 172 thou/uL (130-400); RBC Distribution Width 12.6 % (11.5-14.5); Red Blood Cell (RBC) Count 4.12 mill/uL (4.20-5.40); White Blood Cell (WBC) Count 2.6 thou/uL (4.8-10.8)
[2020-10-31 07:52] LABS: ALT (SGPT) 15 U/L (8-55); AST (SGOT) 18 U/L (5-34); Albumin 3.5 g/dL (3.4-4.8); Alkaline Phosphatase 102 U/L (40-110); Anion Gap 12 mmol/L (10-20); BUN (Urea Nitrogen) 10 mg/dL (9.8-20.1); Bilirubin, Total 0.3 mg/dL (0.2-1.2); Calc. Creatinine Clearance 66 mL/min (70-130); Calcium 8.3 mg/dL (7.8-10.44); Carbon Dioxide 25 mmol/L (23-31); Chloride 103 mmol/L (98-107); Globulin 2.9 g/dL (2.4-3.5); Glucose 129 mg/dL (83-110); Potassium 3.8 mmol/L (3.5-5.1); Protein, Total 6.4 g/dL (5.8-8.1); Sodium 136 mmol/L (136-145)
[2020-10-31 07:56] LABS: Band 3 % (5-11); Lymphocytes 34 % (21-51); MDiff Complete? YES; Monocytes 21 % (0-10); Neutrophil 42 % (42-75); Platelet Morphology Comment Appears Adequate; RBC Morphology Normal
[2020-10-31] MEDS ORDERED: Dexamethasone 4 MG TAB PO SCH (09:00)
[2020-10-31] MEDS: Enoxaparin Sodium 30 MG/0.3 ML SYRINGE SC SCH (09:29)
[2020-10-31] MEDS: Gabapentin 300 MG CAP PO SCH ×2 (09:30→21:15)
[2020-10-31] MEDS: Amlodipine 5 MG TAB PO SCH (09:30)
[2020-10-31] MEDS: Aspirin 81 mg Enteric Coated Tablet PO SCH (09:31)
[2020-10-31] MEDS: DULoxetine 30 MG CAP PO SCH (09:31)
[2020-10-31] MEDS ORDERED: cefTRIAXone\\ROCEPHIN 1 GM in Sodium Chloride 0.9% 100 ML IVPB SCH (12:00)
[2020-10-31] MEDS: Sodium Chloride 0.9% 1,000 ML IV SCH (13:34)
[2020-10-31] MEDS: Meropenem 1 GM in Sodium Chloride 0.9% 100 ML IVPB SCH (16:31)
[2020-10-31] MEDS ORDERED: Enoxaparin Sodium 40 MG/0.4 ML SYRINGE ONE (21:09)
[2020-10-31] MEDS: Acetaminophen 325 MG TAB PO PRN (21:16)
[2020-10-31] MEDS: traZODone HCl 50 MG TAB PO SCH (21:16)
[2020-10-31] MEDS: Atorvastatin Calcium 40 MG TAB PO SCH (21:16)
[2020-10-31] MEDS: Guaifenesin DM 100-10/5 ML UDCUP PO PRN (21:17)
[2020-10-31] MEDS ORDERED: cefOXitin 2 GM in Sodium Chloride 0.9% 100 ML IVPB SCH (22:00)
[2020-11-01] MEDS: Meropenem 1 GM in Sodium Chloride 0.9% 100 ML IVPB SCH ×3 (00:31→15:51)
[2020-11-01] MEDS: Albuterol 200 PUFF (6.7GM INHALER) INH SCH ×4 (00:42→18:01)
[2020-11-01] MEDS: Sodium Chloride 0.9% 1,000 ML IV SCH (01:11)
[2020-11-01] MEDS: Gabapentin 300 MG CAP PO SCH ×2 (08:30→20:45)
[2020-11-01] MEDS: Amlodipine 5 MG TAB PO SCH (08:30)
[2020-11-01] MEDS: Enoxaparin Sodium 30 MG/0.3 ML SYRINGE SC SCH (08:32)
[2020-11-01] MEDS: DULoxetine 30 MG CAP PO SCH (08:32)
[2020-11-01] MEDS: Aspirin 81 mg Enteric Coated Tablet PO SCH (08:32)
[2020-11-01 19:25] LABS: SARS-CoV-2 IgG Ab Non-Reactive (NonReactive); SARS-CoV-2 IgG Index 0.04 S/CO (< 1.40)
[2020-11-01] MEDS: Acetaminophen 325 MG TAB PO PRN (20:45)
[2020-11-01] MEDS: traZODone HCl 50 MG TAB PO SCH (20:46)
[2020-11-01] MEDS: Atorvastatin Calcium 40 MG TAB PO SCH (20:46)
[2020-11-01] MEDS: Guaifenesin DM 100-10/5 ML UDCUP PO PRN (20:52)
[2020-11-02] MEDS: Meropenem 1 GM in Sodium Chloride 0.9% 100 ML IVPB SCH ×3 (01:19→16:32)
[2020-11-02] MEDS: Albuterol 200 PUFF (6.7GM INHALER) INH SCH ×4 (01:20→18:15)
[2020-11-02 05:14] LABS: Hemoglobin 11.7 g/dL (12.0-16.0); Platelet Count 166 thou/uL (130-400)
[2020-11-02] MEDS: Acetaminophen 325 MG TAB PO PRN ×3 (06:03→21:55)
[2020-11-02] MEDS: Gabapentin 300 MG CAP PO SCH ×2 (08:24→21:54)
[2020-11-02] MEDS: Amlodipine 5 MG TAB PO SCH (08:24)
[2020-11-02] MEDS: Enoxaparin Sodium 30 MG/0.3 ML SYRINGE SC SCH (08:25)
[2020-11-02] MEDS: DULoxetine 30 MG CAP PO SCH (08:25)
[2020-11-02] MEDS: Aspirin 81 mg Enteric Coated Tablet PO SCH (08:25)
[2020-11-02] MEDS: Atorvastatin Calcium 40 MG TAB PO SCH (21:54)
[2020-11-02] MEDS: traZODone HCl 50 MG TAB PO SCH (21:55)
[2020-11-02] MEDS: Guaifenesin DM 100-10/5 ML UDCUP PO PRN (21:55)
[2020-11-03] MEDS: Meropenem 1 GM in Sodium Chloride 0.9% 100 ML IVPB SCH ×3 (01:14→16:31)
[2020-11-03] MEDS: Albuterol 200 PUFF (6.7GM INHALER) INH SCH ×5 (01:14→20:46)
[2020-11-03 05:35] LABS: Anion Gap 14 mmol/L (10-20); BUN (Urea Nitrogen) 8 mg/dL (9.8-20.1); Calc. Creatinine Clearance 67 mL/min (70-130); Carbon Dioxide 26 mmol/L (23-31); Chloride 103 mmol/L (98-107); Glucose 96 mg/dL (83-110); Potassium 3.8 mmol/L (3.5-5.1); Sodium 139 mmol/L (136-145)
[2020-11-03 06:03] LABS: Band 3 % (5-11); Eosinophils 3 % (0-10); Hemoglobin 11.4 g/dL (12.0-16.0); Lymphocytes 47 % (21-51); MDiff Complete? YES; Mean Corpuscular Hemoglobin 27.9 pg (27.0-31.0); Mean Platelet Volume 6.9 fL (7.4-10.4); Monocytes 14 % (0-10); Neutrophil 32 % (42-75); Platelet Count 161 thou/uL (130-400); Platelet Morphology Comment Appears Adequate; RBC Distribution Width 13.2 % (11.5-14.5); RBC Morphology Normal; Red Blood Cell (RBC) Count 4.07 mill/uL (4.20-5.40); Small Platelets SLIGHT; White Blood Cell (WBC) Count 2.4 thou/uL (4.8-10.8)
[2020-11-03] MEDS: Gabapentin 300 MG CAP PO SCH ×2 (09:10→20:45)
[2020-11-03] MEDS: Amlodipine 5 MG TAB PO SCH (09:11)
[2020-11-03] MEDS: Aspirin 81 mg Enteric Coated Tablet PO SCH (09:11)
[2020-11-03] MEDS: DULoxetine 30 MG CAP PO SCH (09:12)
[2020-11-03] MEDS: Enoxaparin Sodium 30 MG/0.3 ML SYRINGE SC SCH (09:13)
[2020-11-03 18:16] VITALS: BP 140/71; TEMP 98.7
[2020-11-03] MEDS: Atorvastatin Calcium 40 MG TAB PO SCH (20:45)
[2020-11-03] MEDS: traZODone HCl 50 MG TAB PO SCH (20:45)
[2020-11-04] MEDS: Meropenem 1 GM in Sodium Chloride 0.9% 100 ML IVPB SCH ×2 (01:00→08:47)
[2020-11-04] MEDS: Albuterol 200 PUFF (6.7GM INHALER) INH SCH ×2 (01:30→08:41)
[2020-11-04] MEDS ORDERED: Ondansetron PF 4 MG/2 ML Vial ONE ×2 (06:31→06:35)
[2020-11-04] MEDS ORDERED: Ondansetron PF 4 MG/2 ML Vial IVP PRN (06:44)
[2020-11-04] MEDS ORDERED: Ondansetron ODT 4 MG TAB SL PRN (06:45)
[2020-11-04] MEDS: Enoxaparin Sodium 30 MG/0.3 ML SYRINGE SC SCH (08:42)
[2020-11-04] MEDS: Amlodipine 5 MG TAB PO SCH (08:45)
[2020-11-04] MEDS: Aspirin 81 mg Enteric Coated Tablet PO SCH (08:45)
[2020-11-04] MEDS: Gabapentin 300 MG CAP PO SCH (08:45)
[2020-11-04] MEDS: DULoxetine 30 MG CAP PO SCH (08:45)
== END 2020-11-04 08:30 | disposition swing bed (61) | DRG 178 ==
LOC: BURERS 09:35 → BURMED 12:30
PROVIDERS: ADMIT Family Medicine; ATTEND Family Medicine
PROC: 8E0ZXY6 Isolation (ICD-10-PCS; principal; 2020-10-30)
DX: U07.1 COVID-19 (principal); J44.1 Chronic obstructive pulmonary disease with (acute) exacerbation; N39.0 Urinary tract infection, site not specified; R78.81 Bacteremia; I10 Essential (primary) hypertension; E78.5 Hyperlipidemia, unspecified; K21.9 Gastro-esophageal reflux disease without esophagitis; Z86.73 Personal history of transient ischemic attack (TIA), and cerebral infarction without residual deficits; G62.9 Polyneuropathy, unspecified; G89.29 Other chronic pain; E55.9 Vitamin D deficiency, unspecified; H91.90 Unspecified hearing loss, unspecified ear; F41.9 Anxiety disorder, unspecified; F32.9 Major depressive disorder, single episode, unspecified; Z87.891 Personal history of nicotine dependence; Z88.5 Allergy status to narcotic agent; Z88.6 Allergy status to analgesic agent; Z91.041 Radiographic dye allergy status; Z79.82 Long term (current) use of aspirin; Z98.49 Cataract extraction status, unspecified eye; Z90.710 Acquired absence of both cervix and uterus; Z83.3 Family history of diabetes mellitus; Z82.49 Family history of ischemic heart disease and other diseases of the circulatory system; F03.90 Unspecified dementia, unspecified severity, without behavioral disturbance, psychotic disturbance, mood disturbance, and anxiety; B95.8 Unspecified staphylococcus as the cause of diseases classified elsewhere; Z79.899 Other long term (current) drug therapy; B96.20 Unspecified Escherichia coli [E. coli] as the cause of diseases classified elsewhere
CPT/HCPCS: 0240U; 36415; 71045; 80048; 80053; 81003; 81015; 82565; 82728; 83605; 85014; 85018; 85025; 85049; 85379; 86140; 86769; 87040; 87077; 87086; 87149; 87186; 94640; 96365; 96375; J0696; J1100; J1650; J2185; J2405; J3490; J7050; J7620

== ENCOUNTER 2020-11-04 10:32 | Inpatient (IN) | payer MEDICARE ==
[2020-11-04] MEDS ORDERED: Ondansetron ODT 4 MG TAB SL PRN (13:58)
[2020-11-04] MEDS ORDERED: Senokot S 8.6-50 MG TAB PO PRN (13:58)
[2020-11-04] MEDS ORDERED: Guaifenesin DM 100-10/5 ML UDCUP PO PRN (13:58)
[2020-11-04] MEDS ORDERED: Nitroglycerin 0.4 MG TAB (25 Tab Bottle) SL SCH (14:00)
[2020-11-04] MEDS ORDERED: Albuterol 200 PUFF (6.7GM INHALER) INH PRN (14:44)
[2020-11-04] MEDS: Acetaminophen 325 MG TAB PO PRN (15:52)
[2020-11-04] MEDS: Meropenem 1 GM in Sodium Chloride 0.9% 100 ML IVPB SCH (15:52)
[2020-11-04] MEDS ORDERED: Meropenem 1 GM VIAL IVPB SCH (16:00)
[2020-11-04] MEDS ORDERED: Non-Formulary Item 1 EACH (Sodium Chloride 0.9% [Normal Saline 0.9%] 100 ML Bag) IVPB SCH (16:00)
[2020-11-04] MEDS: Albuterol 200 PUFF (6.7GM INHALER) INH SCH (20:50)
[2020-11-04] MEDS: Gabapentin 300 MG CAP PO SCH (20:51)
[2020-11-04] MEDS: Atorvastatin Calcium 40 MG TAB PO SCH (20:51)
[2020-11-04] MEDS: traZODone HCl 50 MG TAB PO SCH (20:52)
[2020-11-05] MEDS: Meropenem 1 GM in Sodium Chloride 0.9% 100 ML IVPB SCH ×4 (00:50→23:20)
[2020-11-05] MEDS: Albuterol 200 PUFF (6.7GM INHALER) INH SCH ×4 (01:03→20:37)
[2020-11-05] MEDS: Enoxaparin Sodium 30 MG/0.3 ML SYRINGE SC SCH (07:51)
[2020-11-05] MEDS: Aspirin 81 mg Enteric Coated Tablet PO SCH (07:52)
[2020-11-05] MEDS: Gabapentin 300 MG CAP PO SCH ×2 (07:52→20:35)
[2020-11-05] MEDS: Amlodipine 5 MG TAB PO SCH (07:53)
[2020-11-05] MEDS: DULoxetine 30 MG CAP PO SCH (07:53)
[2020-11-05] MEDS: Acetaminophen 325 MG TAB PO PRN (20:36)
[2020-11-05] MEDS: traZODone HCl 50 MG TAB PO SCH (20:37)
[2020-11-05] MEDS: Atorvastatin Calcium 40 MG TAB PO SCH (20:37)
[2020-11-06] MEDS: Albuterol 200 PUFF (6.7GM INHALER) INH SCH ×4 (01:15→20:00)
[2020-11-06] MEDS: Acetaminophen 325 MG TAB PO PRN ×2 (05:34→20:23)
[2020-11-06] MEDS: Enoxaparin Sodium 30 MG/0.3 ML SYRINGE SC SCH (08:57)
[2020-11-06] MEDS: Amlodipine 5 MG TAB PO SCH (08:58)
[2020-11-06] MEDS: Gabapentin 300 MG CAP PO SCH ×2 (08:58→20:22)
[2020-11-06] MEDS: Meropenem 1 GM in Sodium Chloride 0.9% 100 ML IVPB SCH ×3 (08:59→23:25)
[2020-11-06] MEDS: Aspirin 81 mg Enteric Coated Tablet PO SCH (08:59)
[2020-11-06] MEDS: DULoxetine 30 MG CAP PO SCH (08:59)
[2020-11-06] MEDS: Atorvastatin Calcium 40 MG TAB PO SCH (20:22)
[2020-11-06] MEDS: traZODone HCl 50 MG TAB PO SCH (20:22)
[2020-11-07] MEDS: Albuterol 200 PUFF (6.7GM INHALER) INH SCH ×4 (03:23→20:25)
[2020-11-07] MEDS: Gabapentin 300 MG CAP PO SCH ×2 (07:58→20:26)
[2020-11-07] MEDS: DULoxetine 30 MG CAP PO SCH (07:58)
[2020-11-07] MEDS: Amlodipine 5 MG TAB PO SCH (07:58)
[2020-11-07] MEDS: Enoxaparin Sodium 30 MG/0.3 ML SYRINGE SC SCH (07:59)
[2020-11-07] MEDS: Aspirin 81 mg Enteric Coated Tablet PO SCH (07:59)
[2020-11-07] MEDS: Meropenem 1 GM in Sodium Chloride 0.9% 100 ML IVPB SCH ×3 (08:00→23:57)
[2020-11-07] MEDS: Acetaminophen 325 MG TAB PO PRN (20:25)
[2020-11-07] MEDS: Atorvastatin Calcium 40 MG TAB PO SCH (20:26)
[2020-11-07] MEDS: traZODone HCl 50 MG TAB PO SCH (20:27)
[2020-11-08] MEDS: Albuterol 200 PUFF (6.7GM INHALER) INH SCH ×4 (02:00→20:35)
[2020-11-08] MEDS: DULoxetine 30 MG CAP PO SCH (08:20)
[2020-11-08] MEDS: Gabapentin 300 MG CAP PO SCH ×2 (08:20→20:33)
[2020-11-08] MEDS: Amlodipine 5 MG TAB PO SCH (08:20)
[2020-11-08] MEDS: Aspirin 81 mg Enteric Coated Tablet PO SCH (08:20)
[2020-11-08] MEDS: Enoxaparin Sodium 30 MG/0.3 ML SYRINGE SC SCH (08:21)
[2020-11-08] MEDS: Meropenem 1 GM in Sodium Chloride 0.9% 100 ML IVPB SCH ×3 (08:59→23:44)
[2020-11-08] MEDS: traZODone HCl 50 MG TAB PO SCH (20:34)
[2020-11-08] MEDS: Atorvastatin Calcium 40 MG TAB PO SCH (20:34)
[2020-11-09] MEDS: Albuterol 200 PUFF (6.7GM INHALER) INH SCH ×4 (03:16→21:08)
[2020-11-09] MEDS: Gabapentin 300 MG CAP PO SCH ×2 (07:47→21:09)
[2020-11-09] MEDS: DULoxetine 30 MG CAP PO SCH (07:48)
[2020-11-09] MEDS: Amlodipine 5 MG TAB PO SCH (07:48)
[2020-11-09] MEDS: Aspirin 81 mg Enteric Coated Tablet PO SCH (07:48)
[2020-11-09] MEDS: Enoxaparin Sodium 30 MG/0.3 ML SYRINGE SC SCH (07:49)
[2020-11-09] MEDS: Acetaminophen 325 MG TAB PO PRN (13:51)
[2020-11-09] MEDS: traZODone HCl 50 MG TAB PO SCH (21:09)
[2020-11-09] MEDS: Atorvastatin Calcium 40 MG TAB PO SCH (21:10)
[2020-11-10] MEDS: Albuterol 200 PUFF (6.7GM INHALER) INH SCH ×4 (04:14→20:30)
[2020-11-10] MEDS: Enoxaparin Sodium 30 MG/0.3 ML SYRINGE SC SCH (08:34)
[2020-11-10] MEDS: DULoxetine 30 MG CAP PO SCH (08:35)
[2020-11-10] MEDS: Amlodipine 5 MG TAB PO SCH (08:35)
[2020-11-10] MEDS: Aspirin 81 mg Enteric Coated Tablet PO SCH (08:35)
[2020-11-10] MEDS: Gabapentin 300 MG CAP PO SCH ×2 (08:35→20:55)
[2020-11-10 10:28] VITALS: BMI 24.6
[2020-11-10] MEDS: traZODone HCl 50 MG TAB PO SCH (20:55)
[2020-11-10] MEDS: Atorvastatin Calcium 40 MG TAB PO SCH (20:56)
[2020-11-11] MEDS: Albuterol 200 PUFF (6.7GM INHALER) INH SCH ×3 (02:00→16:26)
[2020-11-11 06:50] VITALS: TEMP 98.7
[2020-11-11] MEDS: Enoxaparin Sodium 30 MG/0.3 ML SYRINGE SC SCH (08:32)
[2020-11-11] MEDS: Aspirin 81 mg Enteric Coated Tablet PO SCH (08:32)
[2020-11-11] MEDS: Gabapentin 300 MG CAP PO SCH (08:32)
[2020-11-11] MEDS: DULoxetine 30 MG CAP PO SCH (08:33)
[2020-11-11] MEDS: Amlodipine 5 MG TAB PO SCH (08:33)
[2020-11-11 08:34] VITALS: BP 130/60
== END 2020-11-11 17:45 | disposition home health service (06) | DRG 178 ==
LOC: BURMED 10:32
PROVIDERS: ADMIT Family Medicine; ATTEND Family Medicine
PROC: 8E0ZXY6 Isolation (ICD-10-PCS; principal; 2020-11-04)
DX: U07.1 COVID-19 (principal); N39.0 Urinary tract infection, site not specified; R78.81 Bacteremia; Z16.19 Resistance to other specified beta lactam antibiotics; J44.9 Chronic obstructive pulmonary disease, unspecified; I10 Essential (primary) hypertension; E78.5 Hyperlipidemia, unspecified; R41.3 Other amnesia; F03.90 Unspecified dementia, unspecified severity, without behavioral disturbance, psychotic disturbance, mood disturbance, and anxiety; K21.9 Gastro-esophageal reflux disease without esophagitis; B96.20 Unspecified Escherichia coli [E. coli] as the cause of diseases classified elsewhere; R53.81 Other malaise; Z86.73 Personal history of transient ischemic attack (TIA), and cerebral infarction without residual deficits; Z90.710 Acquired absence of both cervix and uterus; Z87.891 Personal history of nicotine dependence; Z88.5 Allergy status to narcotic agent; Z88.8 Allergy status to other drugs, medicaments and biological substances; Z91.041 Radiographic dye allergy status; Z79.82 Long term (current) use of aspirin
CPT/HCPCS: J1650; J2185; J3490

== ENCOUNTER 2020-12-01 11:38 | Emergency (ER) | payer MEDICARE ==
[2020-12-01] MEDS ORDERED: Ondansetron PF 4 MG/2 ML Vial ONE (12:06)
[2020-12-01 12:26] LABS: #Basophils 0.1 thou/uL (0.0-0.2); #Eosinphils 0.4 thou/uL (0.0-0.7); #Lymphocytes 1.9 thou/uL (1.20-3.40); #Monocytes 0.6 thou/uL (0.11-0.59); #Neutrophils 4.6 thou/uL (1.40-6.50); %Basophils 1.1 % (0.0-1.0); %Eosinophils 5.8 % (0.0-10.0); %Lymphocytes 25.3 % (21.0-51.0); %Monocytes 7.6 % (0.0-10.0); %Neutrophils 60.2 % (42.0-75.0); Hemoglobin 13.7 g/dL (12.0-16.0); Mean Corpuscular Hemoglobin 29.6 pg (27.0-31.0); Mean Corpuscular Volume 89.7 fL (78.0-98.0); Mean Platelet Volume 6.4 fL (7.4-10.4); Platelet Count 277 thou/uL (130-400); RBC Distribution Width 12.8 % (11.5-14.5); Red Blood Cell (RBC) Count 4.62 mill/uL (4.20-5.40); White Blood Cell (WBC) Count 7.6 thou/uL (4.8-10.8)
[2020-12-01 12:42] LABS: ALT (SGPT) 10 U/L (8-55); AST (SGOT) 17 U/L (5-34); Albumin 4.3 g/dL (3.4-4.8); Alkaline Phosphatase 118 U/L (40-110); Anion Gap 17 mmol/L (10-20); BUN (Urea Nitrogen) 13 mg/dL (9.8-20.1); Bilirubin, Total 0.7 mg/dL (0.2-1.2); Calc. Creatinine Clearance 0 mL/min (70-130); Carbon Dioxide 25 mmol/L (23-31); Chloride 102 mmol/L (98-107); Globulin 3.1 g/dL (2.4-3.5); Glucose 95 mg/dL (83-110); Potassium 3.9 mmol/L (3.5-5.1); Protein, Total 7.4 g/dL (5.8-8.1); Sodium 140 mmol/L (136-145)
[2020-12-01] MEDS ORDERED: predniSONE 20 MG TAB ONE (13:45)
== END 2020-12-01 14:23 | disposition home or self-care (01) ==
LOC: BURERS 11:38
DX: J44.1 Chronic obstructive pulmonary disease with (acute) exacerbation (principal); I10 Essential (primary) hypertension; E78.5 Hyperlipidemia, unspecified; K21.9 Gastro-esophageal reflux disease without esophagitis; Z86.73 Personal history of transient ischemic attack (TIA), and cerebral infarction without residual deficits; Z87.891 Personal history of nicotine dependence; Z86.16 Personal history of COVID-19
CPT/HCPCS: 71045; 80053; 83605; 83880; 84484; 85025; 87081; 87430; 87804; 93005; 94760; 96374; J2405; J7512; J7620

== ENCOUNTER 2021-02-22 16:59 | Emergency (ER) | payer MEDICARE | END 2021-02-22 18:20 | disposition home or self-care (01) | LOC: BURERS 16:59 | DX: S80.861A Insect bite (nonvenomous), right lower leg, initial encounter (principal); L03.115 Cellulitis of right lower limb; L30.9 Dermatitis, unspecified; I10 Essential (primary) hypertension; E78.5 Hyperlipidemia, unspecified; K21.9 Gastro-esophageal reflux disease without esophagitis; Z86.73 Personal history of transient ischemic attack (TIA), and cerebral infarction without residual deficits; Z87.891 Personal history of nicotine dependence; W57.XXXA Bitten or stung by nonvenomous insect and other nonvenomous arthropods, initial encounter | CPT/HCPCS: 99283 ==

== ENCOUNTER 2021-04-21 12:52 | Emergency (ER) | payer MEDICARE ==
[2021-04-21 13:56] LABS: Bilirubin Negative (Negative); Blood, Urine Trace (Negative); Clarity Hazy (Clear); Glucose, Urine (Dipstick) Negative (Negative); Ketone, Urine Negative (Negative); Leukocyte Small (Negative); Nitrite Negative (Negative); Protein, Urine (Dipstick) Negative (Neg-Trace); Urobilinogen 0.2 mg/dL (Less than 2)
[2021-04-21 13:59] LABS: Bacteria/HPF 2+ HPF (None Seen); RBC/HPF 0-3 HPF (0-3); Squamous Epithelial 0-3 HPF (0-3); WBC/HPF 0-3 HPF (0-3)
== END 2021-04-21 15:15 | disposition home or self-care (01) ==
LOC: BURERS 12:52
DX: N39.0 Urinary tract infection, site not specified (principal); R33.9 Retention of urine, unspecified; K21.9 Gastro-esophageal reflux disease without esophagitis; E78.5 Hyperlipidemia, unspecified; I10 Essential (primary) hypertension; Z87.891 Personal history of nicotine dependence; Z79.899 Other long term (current) drug therapy
CPT/HCPCS: 51702; 51798; 81015; 87086

== ENCOUNTER 2021-05-03 19:27 | Emergency (ER) | payer MEDICARE ==
[2021-05-03 19:57] LABS: Bilirubin Negative (Negative); Blood, Urine Negative (Negative); Clarity Clear (Clear); Glucose, Urine (Dipstick) Negative (Negative); Ketone, Urine Negative (Negative); Leukocyte Negative (Negative); Nitrite Negative (Negative); Protein, Urine (Dipstick) Negative (Neg-Trace); Specific Gravity, Urine 1.015 (1.005-1.030); Urobilinogen 0.2 mg/dL (Less than 2)
[2021-05-03 22:47] LABS: #Basophils 0.1 thou/uL (0.0-0.2); #Eosinphils 0.6 thou/uL (0.0-0.7); #Lymphocytes 2.3 thou/uL (1.20-3.40); #Monocytes 0.6 thou/uL (0.11-0.59); #Neutrophils 3.7 thou/uL (1.40-6.50); %Basophils 1.2 % (0.0-1.0); %Eosinophils 8.7 % (0.0-10.0); %Lymphocytes 31.9 % (21.0-51.0); %Monocytes 7.6 % (0.0-10.0); %Neutrophils 50.5 % (42.0-75.0); Hemoglobin 12.2 g/dL (12.0-16.0); Mean Corpuscular HGB CONC 33.8 g/dL (32.0-36.0); Mean Corpuscular Hemoglobin 29.2 pg (27.0-31.0); Mean Corpuscular Volume 86.5 fL (78.0-98.0); Mean Platelet Volume 5.9 fL (7.4-10.4); Platelet Count 254 thou/uL (130-400); Red Blood Cell (RBC) Count 4.19 mill/uL (4.20-5.40); White Blood Cell (WBC) Count 7.3 thou/uL (4.8-10.8)
[2021-05-03 23:01] LABS: ALT (SGPT) 7 U/L (8-55); AST (SGOT) 10 U/L (5-34); Albumin 3.9 g/dL (3.4-4.8); Alkaline Phosphatase 88 U/L (40-110); Anion Gap 16 mmol/L (10-20); BUN (Urea Nitrogen) 17 mg/dL (9.8-20.1); Bilirubin, Total 0.6 mg/dL (0.2-1.2); Calc. Creatinine Clearance 0 mL/min (70-130); Carbon Dioxide 30 mmol/L (23-31); Chloride 99 mmol/L (98-107); Globulin 3.1 g/dL (2.4-3.5); Glucose 114 mg/dL (83-110); Lipase 28 U/L (8-78); Potassium 3.3 mmol/L (3.5-5.1); Sodium 142 mmol/L (136-145)
[2021-05-04] MEDS ORDERED: Iopamidol 370 76% 100 ML VIAL ONE (11:31)
== END 2021-05-04 03:50 | disposition home or self-care (01) ==
LOC: BURERS 19:27
DX: N13.30 Unspecified hydronephrosis (principal); K21.9 Gastro-esophageal reflux disease without esophagitis; E78.5 Hyperlipidemia, unspecified; E78.00 Pure hypercholesterolemia, unspecified; I10 Essential (primary) hypertension; Z87.891 Personal history of nicotine dependence
CPT/HCPCS: 36415; 51702; 74177; 80053; 81003; 83690; 85025; Q9967

== ENCOUNTER 2021-09-07 15:54 | Inpatient (IN) | payer MEDICARE, OTHER ==
[2021-09-07] MEDS ORDERED: cefTRIAXone\\ROCEPHIN 2 GM VIAL ONE ×2 (16:12→16:43)
[2021-09-07] MEDS ORDERED: Sodium Chloride 0.9% 0 ML ONE (16:12)
[2021-09-07] MEDS ORDERED: Fentanyl 100 MCG/2 ML VIAL ONE (16:12)
[2021-09-07 16:18] LABS: Bilirubin Small (Negative); Blood, Urine Large (Negative); Clarity Turbid (Clear); Glucose, Urine (Dipstick) Negative (Negative); Ketone, Urine Trace mg/dL (Negative); Leukocyte Large (Negative); Nitrite Positive (Negative); Protein, Urine (Dipstick) 100 mg/dL (Neg-Trace); Specific Gravity, Urine 1.025 (1.005-1.030)
[2021-09-07] MEDS ORDERED: Ketorolac Tromethamine 30 MG/ML VIAL ONE (16:18)
[2021-09-07] MEDS ORDERED: Acetaminophen 500 MG TAB ONE (16:43)
[2021-09-07] MEDS ORDERED: Sodium Chloride 0.9% 100 ML ONE (16:43)
[2021-09-07 16:57] LABS: #Basophils 0.1 thou/uL (0.0-0.2); #Eosinphils 0.2 thou/uL (0.0-0.7); #Lymphocytes 1.8 thou/uL (1.20-3.40); #Monocytes 0.6 thou/uL (0.11-0.59); #Neutrophils 4.4 thou/uL (1.40-6.50); %Basophils 0.8 % (0.0-1.0); %Eosinophils 3.1 % (0.0-10.0); %Lymphocytes 25.8 % (21.0-51.0); %Monocytes 8.1 % (0.0-10.0); %Neutrophils 62.2 % (42.0-75.0); Hemoglobin 10.4 g/dL (12.0-16.0); Mean Corpuscular HGB CONC 31.5 g/dL (32.0-36.0); Mean Corpuscular Hemoglobin 25.9 pg (27.0-31.0); Mean Corpuscular Volume 82.3 fL (78.0-98.0); Mean Platelet Volume 5.7 fL (7.4-10.4); Platelet Count 314 thou/uL (130-400); RBC Distribution Width 15.8 % (11.5-14.5); Red Blood Cell (RBC) Count 4.03 mill/uL (4.20-5.40); White Blood Cell (WBC) Count 7.1 thou/uL (4.8-10.8)
[2021-09-07 17:04] LABS: RBC/HPF Greater than 50 HPF (0-3); WBC/HPF Greater Than 50 HPF (0-3)
[2021-09-07 17:12] LABS: ALT (SGPT) 7 U/L (8-55); AST (SGOT) 10 U/L (5-34); Albumin 3.4 g/dL (3.4-4.8); Alkaline Phosphatase 144 U/L (40-110); Anion Gap 11 mmol/L (10-20); BUN (Urea Nitrogen) 11 mg/dL (9.8-20.1); Bilirubin, Total 0.3 mg/dL (0.2-1.2); Calc. Creatinine Clearance 0 mL/min (70-130); Calcium 8.7 mg/dL (7.8-10.44); Carbon Dioxide 24 mmol/L (23-31); Chloride 105 mmol/L (98-107); Globulin 3.4 g/dL (2.4-3.5); Glucose 120 mg/dL (83-110); Lipase 14 U/L (8-78); Magnesium 1.8 mg/dL (1.6-2.6); Potassium 3.3 mmol/L (3.5-5.1); Protein, Total 6.8 g/dL (5.8-8.1); Sodium 137 mmol/L (136-145)
[2021-09-07 19:23] LABS: SARS-CoV-2 NAA Rapid Test Not Detected (NotDetected)
[2021-09-07] MEDS ORDERED: Acetaminophen 325 MG TAB PO PRN (21:00)
[2021-09-07] MEDS ORDERED: Vancomycin HCl 1 GM in Sodium Chloride 0.9% 250 ML 250 ML IVPB SCH (21:15)
[2021-09-07] MEDS ORDERED: Amlodipine 10 MG TAB PO SCH (23:15)
[2021-09-07 23:49] VITALS: BMI 21.6
[2021-09-08] MEDS ORDERED: Ondansetron ODT 4 MG TAB SL PRN (07:42)
[2021-09-08] MEDS ORDERED: traMADol HCl 50 MG TAB PO PRN ×2 (07:42)
[2021-09-08] MEDS ORDERED: cefTRIAXone\\ROCEPHIN 2 GM VIAL ONE (08:22)
[2021-09-08] MEDS ORDERED: Albuterol 200 PUFF (6.7GM INHALER) ONE (08:40)
[2021-09-08] MEDS ORDERED: Amlodipine 10 MG TAB ONE (08:41)
[2021-09-08] MEDS ORDERED: Apixaban 2.5 MG TAB ONE (08:41)
[2021-09-08] MEDS ORDERED: Aripiprazole 10 MG TAB ONE (08:42)
[2021-09-08] MEDS ORDERED: Aspirin 81 mg Enteric Coated Tablet ONE (08:42)
[2021-09-08] MEDS ORDERED: Enoxaparin Sodium 100 MG/ML SYRINGE ONE (08:43)
[2021-09-08] MEDS ORDERED: DULoxetine 30 MG CAP ONE (08:44)
[2021-09-08] MEDS ORDERED: Ezetimibe 10 MG TAB ONE (08:44)
[2021-09-08] MEDS ORDERED: Furosemide 20 MG TAB ONE (08:46)
[2021-09-08] MEDS ORDERED: Metoprolol Tartrate 25 MG TAB ONE (08:47)
[2021-09-08] MEDS ORDERED: Saccharomyces boulardii 250 MG CAP ONE (08:48)
[2021-09-08] MEDS: Albuterol 200 PUFF (6.7GM INHALER) INH SCH ×4 (08:59→23:28)
[2021-09-08] MEDS: DULoxetine 30 MG CAP PO SCH (08:59)
[2021-09-08] MEDS: Gabapentin 300 MG CAP PO SCH ×3 (09:00→23:27)
[2021-09-08] MEDS ORDERED: FLU VACC QS2021-22(65YR UP)/PF 240 MCG/0.7 ML SYRINGE IM ONE (09:00)
[2021-09-08] MEDS ORDERED: Amlodipine 5 MG TAB PO SCH (09:00)
[2021-09-08] MEDS: Saccharomyces boulardii 250 MG CAP PO SCH (09:00)
[2021-09-08] MEDS: Furosemide 20 MG TAB PO SCH (09:00)
[2021-09-08] MEDS: Aspirin 81 mg Enteric Coated Tablet PO SCH (09:00)
[2021-09-08] MEDS: Ezetimibe 10 MG TAB PO SCH (09:01)
[2021-09-08] MEDS: Metoprolol Tartrate 25 MG TAB PO SCH ×2 (09:01→23:27)
[2021-09-08] MEDS: Aripiprazole 10 MG TAB PO SCH (09:01)
[2021-09-08] MEDS: Amlodipine 10 MG TAB PO SCH (09:21)
[2021-09-08] MEDS: Apixaban 5 MG TAB PO SCH ×2 (09:21→23:27)
[2021-09-08] MEDS ORDERED: Ferrous Gluconate 324 MG TAB PO SCH (10:00)
[2021-09-08] MEDS ORDERED: Acetaminophen 500 MG TAB ONE (11:59)
[2021-09-08] MEDS: Acetaminophen 500 MG TAB PO SCH ×3 (14:08→23:32)
[2021-09-08] MEDS ORDERED: cefTRIAXone\\ROCEPHIN 2 GM in Sodium Chloride 0.9% 100 ML IVPB SCH (16:00)
[2021-09-08] MEDS: Gabapentin 300 MG CAP ONE ×2 (16:47→18:39)
[2021-09-08] MEDS ORDERED: Vancomycin HCl 750 MG in Sodium Chloride 0.9% 250 ML 250 ML IVPB SCH (17:00)
[2021-09-08] MEDS ORDERED: Vancomycin HCl 500 MG in Sodium Chloride 0.9% 100 ML IVPB SCH (18:00)
[2021-09-08] MEDS ORDERED: Mometasone/Formoterol 200/5 60 PUFF INH SCH (19:00)
[2021-09-08] MEDS ORDERED: Amlodipine 10 MG TAB PO SCH (21:00)
[2021-09-08] MEDS: Atorvastatin Calcium 40 MG TAB PO SCH (23:26)
[2021-09-08] MEDS: traZODone HCl 50 MG TAB PO SCH (23:26)
[2021-09-08] MEDS: Mometasone/Formoterol 200/5 60 PUFF INH SCH (23:29)
[2021-09-09] MEDS: Albuterol 200 PUFF (6.7GM INHALER) INH SCH ×6 (01:50→20:52)
[2021-09-09] MEDS: Acetaminophen 500 MG TAB PO SCH ×4 (05:46→23:53)
[2021-09-09] MEDS ORDERED: FERROUS GLUCONATE 256 MG PO SCH (08:00)
[2021-09-09] MEDS: Mometasone/Formoterol 200/5 60 PUFF INH SCH ×2 (10:00→20:53)
[2021-09-09] MEDS: DULoxetine 30 MG CAP PO SCH (10:08)
[2021-09-09] MEDS: Ferrous Gluconate 324 MG TAB PO SCH (10:09)
[2021-09-09] MEDS: Aspirin 81 mg Enteric Coated Tablet PO SCH (10:09)
[2021-09-09] MEDS: Aripiprazole 10 MG TAB PO SCH (10:09)
[2021-09-09] MEDS: Saccharomyces boulardii 250 MG CAP PO SCH (10:09)
[2021-09-09] MEDS: Metoprolol Tartrate 25 MG TAB PO SCH ×2 (10:09→20:49)
[2021-09-09] MEDS: Apixaban 5 MG TAB PO SCH ×2 (10:09→20:49)
[2021-09-09] MEDS: Amlodipine 10 MG TAB PO SCH (10:10)
[2021-09-09] MEDS: Furosemide 20 MG TAB PO SCH (10:10)
[2021-09-09] MEDS: Gabapentin 300 MG CAP PO SCH ×3 (10:11→20:49)
[2021-09-09] MEDS: Ezetimibe 10 MG TAB PO SCH (10:13)
[2021-09-09] MEDS ORDERED: cefTRIAXone\\ROCEPHIN 2 GM in Sodium Chloride 0.9% 100 ML IVPB SCH (15:00)
[2021-09-09] MEDS: traZODone HCl 50 MG TAB PO SCH (20:49)
[2021-09-09] MEDS: Atorvastatin Calcium 40 MG TAB PO SCH (20:49)
[2021-09-10] MEDS: Albuterol 200 PUFF (6.7GM INHALER) INH SCH ×4 (02:11→15:31)
[2021-09-10] MEDS: Acetaminophen 500 MG TAB PO SCH ×2 (05:47→14:34)
[2021-09-10 06:15] VITALS: TEMP 98.4
[2021-09-10] MEDS: Metoprolol Tartrate 25 MG TAB PO SCH (10:56)
[2021-09-10] MEDS: DULoxetine 30 MG CAP PO SCH (10:56)
[2021-09-10] MEDS: Gabapentin 300 MG CAP PO SCH ×2 (10:57→14:33)
[2021-09-10] MEDS: Ferrous Gluconate 324 MG TAB PO SCH (10:57)
[2021-09-10] MEDS: Ezetimibe 10 MG TAB PO SCH (10:58)
[2021-09-10] MEDS: Aripiprazole 10 MG TAB PO SCH (10:58)
[2021-09-10] MEDS: Furosemide 20 MG TAB PO SCH (10:58)
[2021-09-10] MEDS: Aspirin 81 mg Enteric Coated Tablet PO SCH (10:59)
[2021-09-10] MEDS: Saccharomyces boulardii 250 MG CAP PO SCH (10:59)
[2021-09-10] MEDS: Apixaban 5 MG TAB PO SCH (10:59)
[2021-09-10] MEDS: Amlodipine 10 MG TAB PO SCH (10:59)
[2021-09-10] MEDS: Mometasone/Formoterol 200/5 60 PUFF INH SCH (11:00)
[2021-09-10 11:01] VITALS: BP 111/69
== END 2021-09-10 14:45 | DRG 560 ==
LOC: BURERS 15:54 → BURMED 18:38
PROVIDERS: ADMIT Family Medicine; ATTEND Family Medicine
DX: S72.002D Fracture of unspecified part of neck of left femur, subsequent encounter for closed fracture with routine healing (principal); N39.0 Urinary tract infection, site not specified; F03.91 Unspecified dementia, unspecified severity, with behavioral disturbance; I48.20 Chronic atrial fibrillation, unspecified; I10 Essential (primary) hypertension; J44.9 Chronic obstructive pulmonary disease, unspecified; Z20.822 Contact with and (suspected) exposure to COVID-19; K21.9 Gastro-esophageal reflux disease without esophagitis; X58.XXXD Exposure to other specified factors, subsequent encounter; Z86.73 Personal history of transient ischemic attack (TIA), and cerebral infarction without residual deficits; Z90.710 Acquired absence of both cervix and uterus; Z90.89 Acquired absence of other organs; Z90.49 Acquired absence of other specified parts of digestive tract; Z98.890 Other specified postprocedural states; Z87.891 Personal history of nicotine dependence; Z88.5 Allergy status to narcotic agent; Z91.041 Radiographic dye allergy status; Z88.8 Allergy status to other drugs, medicaments and biological substances; Z79.82 Long term (current) use of aspirin; Z79.01 Long term (current) use of anticoagulants; Z79.899 Other long term (current) drug therapy
CPT/HCPCS: 36415; 51701; 71045; 72170; 80053; 81003; 81015; 83605; 83690; 83735; 84484; 85025; 87040; 87077; 87086; 87186; 93005; 94664; 94760; 96365; 96366; 96367; 96375; J0696; J1650; J1885; J3010; J3370; J3490; U0002

== ENCOUNTER 2021-11-02 13:17 | Emergency (ER) | payer MEDICARE, OTHER ==
[2021-11-02 14:11] LABS: Bilirubin Negative (Negative); Blood, Urine Small (Negative); Clarity Cloudy (Clear); Glucose, Urine (Dipstick) Negative (Negative); Ketone, Urine Negative (Negative); Leukocyte Large (Negative); Nitrite Positive (Negative); Protein, Urine (Dipstick) 100 mg/dL (Neg-Trace); Specific Gravity, Urine 1.015 (1.005-1.030); Urobilinogen 0.2 mg/dL (Less than 2); pH, Urine 8.5 (5.0-9.0)
[2021-11-02 14:15] LABS: Hemoglobin 9.6 g/dL (12.0-16.0); Mean Corpuscular Hemoglobin 25.2 pg (27.0-31.0); Mean Corpuscular Volume 81.5 fL (78.0-98.0); Mean Platelet Volume 5.8 fL (7.4-10.4); Platelet Count 321 thou/uL (130-400); RBC Distribution Width 17.2 % (11.5-14.5); Red Blood Cell (RBC) Count 3.82 mill/uL (4.20-5.40); White Blood Cell (WBC) Count 8.4 thou/uL (4.8-10.8)
[2021-11-02 14:20] LABS: Bacteria/HPF 3+ HPF (None Seen); RBC/HPF 0-3 HPF (0-3); Renal Epithelial 0-3 HPF (None Seen); WBC/HPF Greater Than 50 HPF (0-3)
[2021-11-02] MEDS ORDERED: cefTRIAXone\\ROCEPHIN 2 GM VIAL ONE (14:22)
[2021-11-02 14:23] LABS: ALT (SGPT) 8 U/L (8-55); AST (SGOT) 15 U/L (5-34); Albumin 2.9 g/dL (3.4-4.8); Alkaline Phosphatase 149 U/L (40-110); Anion Gap 9 mmol/L (10-20); BUN (Urea Nitrogen) 40 mg/dL (9.8-20.1); Bilirubin, Total 0.4 mg/dL (0.2-1.2); Calc. Creatinine Clearance 0 mL/min (70-130); Calcium 8.1 mg/dL (7.8-10.44); Carbon Dioxide 26 mmol/L (23-31); Chloride 122 mmol/L (98-107); Globulin 4.2 g/dL (2.4-3.5); Glucose 161 mg/dL (83-110); Potassium 4.2 mmol/L (3.5-5.1); Protein, Total 7.1 g/dL (5.8-8.1); Sodium 153 mmol/L (136-145)
[2021-11-02 14:35] LABS: Band 2 % (5-11); Lymphocytes 22 % (21-51); MDiff Complete? YES; Monocytes 7 % (0-10); Neutrophil 67 % (42-75)
[2021-11-02] MEDS ORDERED: Ketorolac Tromethamine 30 MG/ML VIAL ONE (15:07)
[2021-11-02] MEDS ORDERED: Rocuronium Bromide 10 MG/ML (10ML VIAL) ONE (15:33)
[2021-11-02] MEDS ORDERED: EPINEPHrine 1 MG/10 ML Abboject SYRINGE ONE (15:37)
[2021-11-02 15:43] LABS: SARS-CoV-2 NAA Rapid Test Not Detected (NotDetected)
[2021-11-02] MEDS ORDERED: Norepinephrine 4 MG/4 ML VIAL ONE (15:45)
[2021-11-02] MEDS ORDERED: Fentanyl 100 MCG/2 ML VIAL ONE (16:06)
== END 2021-11-02 17:30 | disposition short-term general hospital (02) ==
LOC: BURERS 13:17
DX: N39.0 Urinary tract infection, site not specified (principal); R65.21 Severe sepsis with septic shock; I48.91 Unspecified atrial fibrillation; E87.0 Hyperosmolality and hypernatremia; I10 Essential (primary) hypertension; E78.5 Hyperlipidemia, unspecified; J44.9 Chronic obstructive pulmonary disease, unspecified; K21.9 Gastro-esophageal reflux disease without esophagitis; Z20.822 Contact with and (suspected) exposure to COVID-19; Z86.73 Personal history of transient ischemic attack (TIA), and cerebral infarction without residual deficits; Z79.82 Long term (current) use of aspirin; Z79.899 Other long term (current) drug therapy
CPT/HCPCS: 31500; 36416; 36556; 51702; 71045; 80053; 81003; 81015; 83605; 84484; 85025; 87040; 87077; 87086; 87149; 87186; 87804; 93005; 94760; 96365; 96374; 96375; J0171; J0696; J1885; J3010; U0002

== ENCOUNTER 2022-03-30 08:51 | Emergency (ER) | payer MEDICARE, OTHER ==
[2022-03-30 09:30] LABS: #Eosinphils 0.1 thou/uL (0.0-0.7); #Lymphocytes 1.3 thou/uL (1.20-3.40); #Monocytes 0.5 thou/uL (0.11-0.59); #Neutrophils 6.3 thou/uL (1.40-6.50); %Basophils 0.4 % (0.0-1.0); %Eosinophils 1.7 % (0.0-10.0); %Lymphocytes 15.9 % (21.0-51.0); %Monocytes 6.5 % (0.0-10.0); %Neutrophils 75.5 % (42.0-75.0); Hemoglobin 10.4 g/dL (12.0-16.0); Mean Corpuscular Hemoglobin 25.8 pg (27.0-31.0); Mean Corpuscular Volume 83.1 fL (78.0-98.0); Mean Platelet Volume 5.4 fL (7.4-10.4); Platelet Count 322 thou/uL (130-400); RBC Distribution Width 17.6 % (11.5-14.5); Red Blood Cell (RBC) Count 4.03 mill/uL (4.20-5.40); White Blood Cell (WBC) Count 8.3 thou/uL (4.8-10.8)
[2022-03-30 09:37] LABS: ALT (SGPT) 11 U/L (8-55); AST (SGOT) 13 U/L (5-34); Albumin 3.7 g/dL (3.4-4.8); Alkaline Phosphatase 175 U/L (40-110); Anion Gap 17 mmol/L (10-20); BUN (Urea Nitrogen) 24 mg/dL (9.8-20.1); Bilirubin, Total 0.4 mg/dL (0.2-1.2); Calc. Creatinine Clearance 0 mL/min (70-130); Calcium 9.3 mg/dL (7.8-10.44); Carbon Dioxide 25 mmol/L (23-31); Chloride 107 mmol/L (98-107); Estimated GFR 36; Globulin 4.5 g/dL (2.4-3.5); Glucose 212 mg/dL (83-110); Potassium 3.6 mmol/L (3.5-5.1); Protein, Total 8.2 g/dL (5.8-8.1); Sodium 145 mmol/L (136-145)
[2022-03-30] MEDS ORDERED: Azithromycin 500 MG VIAL ONE (10:08)
[2022-03-30] MEDS ORDERED: cefTRIAXone\\ROCEPHIN 1 GM VIAL ONE (10:08)
[2022-03-30] MEDS ORDERED: Sodium Chloride 0.9% 100 ML ONE (10:10)
[2022-03-30] MEDS ORDERED: Acetaminophen 650 MG Suppository ONE (12:43)
[2022-03-30 13:40] LABS: Bilirubin Negative (Negative); Blood, Urine Large (Negative); Clarity Turbid (Clear); Glucose, Urine (Dipstick) Negative (Negative); Ketone, Urine Negative (Negative); Leukocyte Large (Negative); Nitrite Negative (Negative); Protein, Urine (Dipstick) > or equal to 300 mg/dL (Neg-Trace); Specific Gravity, Urine 1.025 (1.005-1.030); Urobilinogen 0.2 mg/dL (Less than 2)
[2022-03-30 13:51] LABS: Bacteria/HPF 3+ HPF (None Seen); Oval Fat Bodies/HPF Rare HPF (None Seen); Squamous Epithelial 0-3 HPF (0-3); WBC/HPF 21-50 HPF (0-3)
== END 2022-03-30 15:48 | disposition short-term general hospital (02) ==
LOC: BURERS 08:51
DX: J18.9 Pneumonia, unspecified organism (principal); N17.9 Acute kidney failure, unspecified; N39.0 Urinary tract infection, site not specified; E78.5 Hyperlipidemia, unspecified; I10 Essential (primary) hypertension; J44.9 Chronic obstructive pulmonary disease, unspecified; K21.9 Gastro-esophageal reflux disease without esophagitis
CPT/HCPCS: 36415; 71045; 80053; 81003; 81015; 83880; 84484; 85025; 87040; 93005; 96374; J0456; J0696; J3490

== ENCOUNTER 2022-06-15 11:00 | Outpatient (CLI) | payer OTHER ==
[2022-06-15 11:15] LABS: Bilirubin Negative (Negative); Blood, Urine Small (Negative); Clarity Turbid (Clear); Glucose, Urine (Dipstick) Negative (Negative); Ketone, Urine Negative (Negative); Leukocyte Large (Negative); Nitrite Positive (Negative); Protein, Urine (Dipstick) 30 mg/dL (Neg-Trace); Specific Gravity, Urine 1.015 (1.005-1.030); Urobilinogen 0.2 mg/dL (Less than 2)
== END 2022-06-15 11:01 | disposition home or self-care (01) ==
LOC: BURLAB 11:00 → BURLABSP 11:01
PROVIDERS: ATTEND Family Medicine
DX: N39.0 Urinary tract infection, site not specified (principal)
CPT/HCPCS: 81003

== ENCOUNTER 2022-09-06 06:24 | Emergency (ER) | payer OTHER, MEDICAID ==
[2022-09-06 06:52] LABS: Bilirubin Negative (Negative); Blood, Urine Small (Negative); Glucose, Urine (Dipstick) Negative (Negative); Ketone, Urine Negative (Negative); Leukocyte Small (Negative); Nitrite Positive (Negative); Protein, Urine (Dipstick) 100 mg/dL (Neg-Trace); Specific Gravity, Urine 1.025 (1.005-1.030); Urobilinogen 0.2 mg/dL (Less than 2); pH, Urine 6.5 (5.0-9.0)
[2022-09-06 06:57] LABS: Clarity Hazy (Clear)
[2022-09-06 06:58] LABS: Squamous Epithelial 0-3 HPF (0-3); WBC/HPF Greater Than 50 HPF (0-3)
[2022-09-06 06:59] LABS: Bacteria/HPF Rare-Few HPF (None Seen)
== END 2022-09-06 08:14 | disposition home or self-care (01) ==
LOC: BURERS 06:24
DX: N39.0 Urinary tract infection, site not specified (principal); T83.018A Breakdown (mechanical) of other urinary catheter, initial encounter; I10 Essential (primary) hypertension; J44.9 Chronic obstructive pulmonary disease, unspecified; K21.9 Gastro-esophageal reflux disease without esophagitis; E78.5 Hyperlipidemia, unspecified
CPT/HCPCS: 51702; 81003; 81015

== ENCOUNTER 2022-10-30 13:15 | Emergency (ER) | payer OTHER ==
[2022-10-30 14:04] LABS: #Basophils 0.1 thou/uL (0.0-0.2); #Eosinphils 0.4 thou/uL (0.0-0.7); #Lymphocytes 2.5 thou/uL (1.20-3.40); #Monocytes 0.9 thou/uL (0.11-0.59); #Neutrophils 5.1 thou/uL (1.40-6.50); %Basophils 0.9 % (0.0-1.0); %Lymphocytes 27.3 % (21.0-51.0); %Monocytes 10.5 % (0.0-10.0); %Neutrophils 57.4 % (42.0-75.0); Hemoglobin 11.5 g/dL (12.0-16.0); Mean Corpuscular Volume 81.4 fl (78.0-98.0); Platelet Count 351 10x3/uL (130-400); RBC Distribution Width 15.7 % (11.5-14.5)
[2022-10-30 14:22] LABS: ALT (SGPT) Less than 7 U/L (8-55); AST (SGOT) 12 U/L (5-34); Albumin 3.2 g/dL (3.4-4.8); Alkaline Phosphatase 105 U/L (40-110); Anion Gap 15 mmol/L (10-20); BUN (Urea Nitrogen) 15 mg/dL (9.8-20.1); Bilirubin, Total 0.3 mg/dL (0.2-1.2); CK (CPK) 51 U/L (29-168); Calc. Creatinine Clearance 0 mL/min (70-130); Calcium 8.7 mg/dL (7.8-10.44); Carbon Dioxide 28 mmol/L (23-31); Chloride 109 mmol/L (98-107); Estimated GFR 57; Globulin 4.9 g/dL (2.4-3.5); Glucose 150 mg/dL (83-110); Magnesium 2.2 mg/dL (1.6-2.6); Protein, Total 8.1 g/dL (5.8-8.1); Sodium 148 mmol/L (136-145)
[2022-10-30 15:14] LABS: Bilirubin Negative (Negative); Blood, Urine Small (Negative); Clarity Slightly Cloudy (Clear); Glucose, Urine (Dipstick) Negative (Negative); Ketone, Urine Trace mg/dL (Negative); Leukocyte Small (Negative); Nitrite Negative (Negative); Protein, Urine (Dipstick) 100 mg/dL (Neg-Trace); Urobilinogen 0.2 mg/dL (Less than 2)
[2022-10-30 15:23] LABS: Bacteria/HPF 3+ HPF (None Seen); Squamous Epithelial 0-3 HPF (0-3); Yeast-Budding 2+ HPF (None Seen); Yeast-Hyphae 2+ HPF (None Seen)
[2022-10-30] MEDS ORDERED: cefTRIAXone\\ROCEPHIN 1 GM VIAL ONE (15:31)
[2022-10-30 17:03] LABS: Lactic Acid 2.4 mmol/L (0.5-2.2)
== END 2022-10-30 18:25 ==
LOC: BURERS 13:15
DX: N39.0 Urinary tract infection, site not specified (principal); E86.0 Dehydration; I10 Essential (primary) hypertension; I48.91 Unspecified atrial fibrillation; J44.9 Chronic obstructive pulmonary disease, unspecified; K21.9 Gastro-esophageal reflux disease without esophagitis; E78.5 Hyperlipidemia, unspecified; Z79.899 Other long term (current) drug therapy; Z79.82 Long term (current) use of aspirin
CPT/HCPCS: 36415; 70450; 71045; 80053; 81003; 81015; 82550; 83605; 83735; 84484; 85025; 87040; 87077; 87086; 87149; 93005; 94760; 96361; 96365; J0696